=== PATIENT | female | born 1950 | race African-American/Black ===

== ENCOUNTER 2019-09-29 00:15 | Inpatient (IN) | payer OTHER ==
[~2019-09-29] VITALS: Ht 167.6 cm; Wt 90.8 kg
[2019-09-29] VITALS (19 sets, daily range): BP systolic 80–138; BP diastolic 60–86
[~2019-09-29 00:15] MED LIST: ASPI-630 PO; BACL10TA PO; DIAZ2TAB3 PO; FOLI1TAB16 PO; FURO-69 PO; LEVO100T PO; LORA10TA3 PO; MELA5TAB PO; MIRT30TA3 PO; MULT-245 PO; OXYC5CAP PO; POTASSIUM CHLO10 ME1 PO; THIA100T8 PO; TRAM50TA PO
[2019-09-29] MEDS ORDERED: VANCOMYCIN PER PHARMACY MC PRN (00:45)
--- NOTE | 2019-09-29 00:47 | PHYS DOC ---
Past Medical History Past Medical History: Hypertension, Stroke Additional Past Medical Histor: PAD, cervical stenosis Past Surgical History: Cervical Fusion, Other Additional Past Surgical Histo: Arteries Alcohol Use: None Drug Use: Marijuana Adult General Chief Complaint Chief Complaint: SHORTNESS OF BREATH HPI HPI 69-year-old female presents to the emergency department via EMS with complaints of fever. Patient is a resident of [facility], she has underlying history of C OPD, hypertension, history of CVA. She states the fever started this morning they gave her Tylenol yesterday as well however detention states it started tonight. She does complain of nausea as well as shortness of breath. She denies any chest pain. She states her abdomen feels distended. She denies any pain however on examination. Review of Systems Review of Systems Constitutional: fever Respiratory: Shortness of Breath Cardiovascular: No additional information not addressed in HPI [] GI: Abdominal distention, no nausea, vomiting, bloody stools or diarrhea [] : Denies dysuria or hematuria [] Musculoskeletal: Denies back pain or joint pain [] Integument: Denies rash or skin lesions [] Neurologic: Denies headache, Endocrine: Denies polyuria or polydipsia [] All other systems were reviewed and found to be within normal limits, except as documented in this note. Current Medications Current Medications Current Medications Medications (Trade) Dose Ordered Sig/Chaz Start Time Stop Time Status Last Admin Dose Admin Acetaminophen (Tylenol) 650 mg PRN Q4HRS PRN 09/29/19 03:45 09/29/19 08:22 DC Furosemide (Lasix) 40 mg 1X ONCE 09/29/19 01:30 09/29/19 01:31 DC 09/29/19 01:50 20 MG Info (CONTRAST GIVEN -- Rx MONITORING) 1 each PRN DAILY PRN 09/29/19 02:00 10/01/19 01:59 Iohexol (Omnipaque 300 Mg/ml) 75 ml 1X ONCE 09/29/19 02:00 09/29/19 02:01 DC Norepinephrine Bitartrate 250 ml @ 0 mls/hr CONT PRN 09/29/19 02:45 09/29/19 14:27 14 MLS/HR Ondansetron HCl (Zofran) 4 mg PRN Q8HRS PRN 09/29/19 03:45 09/29/19 08:24 DC Piperacillin Sod/ Tazobactam Sod 4.5 gm/Sodium Chloride 100 ml @ 200 mls/hr 1X ONCE 09/29/19 01:00 09/29/19 01:29 DC 09/29/19 01:02 200 MLS/HR Sodium Chloride 1,000 ml @ 1,000 mls/hr Q1H 09/29/19 02:00 09/29/19 03:21 DC 09/29/19 02:22 1,000 MLS/HR Vancomycin HCl (Vanco Per Pharmacy) 1 each PRN DAILY PRN 09/29/19 00:45 09/29/19 06:34 1 EACH Vancomycin HCl 1.75 gm/Sodium Chloride 500 ml @ 250 mls/hr 1X ONCE 09/29/19 02:00 09/29/19 03:59 DC 09/29/19 02:22 250 MLS/HR Allergies Allergies Allergies Coded Allergies Type Severity Reaction Last Updated Verified propylthiouracil Allergy Intermediate Nausea and Vomiting 03/09/16 Yes Physical Exam Physical Exam Constitutional: Well developed, well nourished, mild distress/ill-appearing [] HENT: Normocephalic, atraumatic, bilateral external ears normal, oropharynx moist, no oral exudates, nose normal. [] Eyes: PERRLA, EOMI, conjunctiva normal, no discharge. [] Neck: Normal range of motion, no tenderness, supple, no stridor. [] Cardiovascular: Tachycardia Lungs & Thorax: Bilateral breath sounds clear to auscultation [] Abdomen: distended, decreased BS, no masses[] Skin: Warm, dry, no erythema, no rash. [] Back: No tenderness, no CVA tenderness. [] Extremities: No tenderness, no edema. [] Neurologic: Alert and oriented X 3, no focal deficits noted. [] Psychologic: Affect normal, judgement normal, mood normal. [] Current Patient Data Vital Signs Vital Signs Date Time Temp Pulse Resp B/P (MAP) Pulse Ox O2 Delivery O2 Flow Rate FiO2 09/29/19 03:46 108 26 132/72 (92) 96 Nasal Cannula 4.0 09/29/19 00:20 104.4 104.4 Lab Values Laboratory Tests Test 09/29/19 00:43 09/29/19 02:35 11/24/19 03:27 White Blood Count 17.2 x10^3/uL (4.0-11.0) H Red Blood Count 4.75 x10^6/uL (3.50-5.40) Hemoglobin 13.4 g/dL (12.0-15.5) Hematocrit 41.3 % (36.0-47.0) Mean Corpuscular Volume 87 fL (79-100) Mean Corpuscular Hemoglobin 28 pg (25-35) Mean Corpuscular Hemoglobin Concent 33 g/dL (31-37) Red Cell Distribution Width 14.7 % (11.5-14.5) H Platelet Count 245 x10^3/uL (140-400) Neutrophils (%) (Auto) 86 % (31-73) H Lymphocytes (%) (Auto) 7 % (24-48) L Monocytes (%) (Auto) 7 % (0-9) Eosinophils (%) (Auto) 0 % (0-3) Basophils (%) (Auto) 1 % (0-3) Neutrophils # (Auto) 14.8 x10^3/uL (1.8-7.7) H Lymphocytes # (Auto) 1.1 x10^3/uL (1.0-4.8) Monocytes # (Auto) 1.2 x10^3/uL (0.0-1.1) H Eosinophils # (Auto) 0.0 x10^3/uL (0.0-0.7) Basophils # (Auto) 0.1 x10^3/uL (0.0-0.2) Segmented Neutrophils % 74 % (35-66) H Band Neutrophils % 12 % (0-9) H Lymphocytes % 8 % (24-48) L Monocytes % 6 % (0-10) Toxic Granulation Slight Toxic Vacuolation Slight Platelet Estimate Adequate (ADEQUATE) Sodium Level 138 mmol/L (136-145) Potassium Level 3.8 mmol/L (3.5-5.1) Chloride Level 99 mmol/L (98-107) Carbon Dioxide Level 26 mmol/L (21-32) Anion Gap 13 (6-14) Blood Urea Nitrogen 12 mg/dL (7-20) Creatinine 0.9 mg/dL (0.6-1.0) Estimated GFR (Cockcroft-Gault) 75.1 BUN/Creatinine Ratio 13 (6-20) Glucose Level 226 mg/dL (70-99) H Lactic Acid Level 3.0 mmol/L (0.4-2.0) H Calcium Level 9.6 mg/dL (8.5-10.1) Total Bilirubin 0.6 mg/dL (0.2-1.0) Aspartate Amino Transferase (AST) 35 U/L (15-37) Alanine Aminotransferase (ALT) 31 U/L (14-59) Alkaline Phosphatase 113 U/L (46-116) MI-Pqs-R-Type Natriuretic Peptide 210 pg/mL (0-124) H Total Protein 8.7 g/dL (6.4-8.2) H Albumin 3.4 g/dL (3.4-5.0) Albumin/Globulin Ratio 0.6 (1.0-1.7) L Influenza Type A Antigen Negative (NEGATIVE) Influenza Type B Antigen Positive (NEGATIVE) Urine Collection Type Unknown Urine Color Yellow Urine Clarity Cloudy Urine pH 5.0 Urine Specific [place] 1.010 Urine Protein 30 mg/dL (NEG-TRACE) Urine Glucose (UA) Negative mg/dL (NEG) Urine Ketones (Stick) Negative mg/dL (NEG) Urine Blood Large (NEG) Urine Nitrite Negative (NEG) Urine Bilirubin Negative (NEG) Urine Urobilinogen Dipstick 1.0 mg/dL (0.2 mg/dL) Urine Leukocyte Esterase Small (NEG) Urine RBC 20-40 /HPF (0-2) Urine WBC 5-10 /HPF (0-4) Urine Squamous Epithelial Cells Few /LPF Urine Amorphous Sediment Present /HPF Urine Bacteria Many /HPF (0-FEW) Laboratory Tests 09/29/19 00:43 Laboratory Tests 09/29/19 00:43 EKG EKG [] Radiology/Procedures Radiology/Procedures [facility] [address] [place], [place] [id number] IMAGING REPORT Signed PATIENT: LANCE HALL ACCOUNT: [id number] : 1950 LOCATION: ER AGE: 69 SEX: F EXAM STATUS: REG ER ORD. PHYSICIAN: SARBJIT ROJAS MD REASON: fever PROCEDURE: CHEST AP ONLY INDICATION: Fever COMPARISON: May 29, 2005 FINDINGS: Single view of chest obtained. Partial visualization of plate and screws at proximal right humerus as well as plate and screws at lower cervical spine. Hypoexpanded examination of the lungs. Mild interstitial opacities bilaterally. Cardiac silhouette is mildly prominent with calcific atherosclerosis but this could be exaggerated by portable technique. IMPRESSION: * Mild interstitial opacities bilaterally which could be secondary to hypoventilatory changes although mild edema or interstitial infiltrate can have this appearance. Electronically signed by: Sakshi Rodriguez MD (09/29/2019 12:55 AM) [facility] DICTATED and SIGNED BY: SAKSHI RODRIGUEZ MD DATE: 09/29/19 0055 [] [facility] [address] [place] [address] IMAGING REPORT Signed PATIENT: LANCE HALL ACCOUNT: [id number] : 1950 LOCATION: ER AGE: 69 SEX: F EXAM STATUS: REG ER ORD. PHYSICIAN: SARBJIT ROJAS MD REASON: abd distention, wbc 17k, hx of graves disease PROCEDURE: CT ABDOMEN PELVIS WO CONTRAST INDICATION: Abdomen pain COMPARISON: None. TECHNIQUE: Axial CT images obtained through the without intravenous contrast.. One or more of the following individualized dose reduction techniques were utilized for this examination: 1. Automated exposure control; 2. Adjustment of the mA and/or kV according to patient size; 3. Use of iterative reconstruction technique. FINDINGS: Patchy opacities at lung bases. Calcified structure at the mediastinum could be from causes such as a calcified lymph node. Calcific atherosclerosis. Large calcified structure left side of the uterus measuring up to 4 cm which is commonly from fibroid. Postoperative changes at the left groin which could be status post vascular surgery. No intrahepatic bile duct dilation. No peripancreatic fluid collection. Motion limits evaluation. Spleen unremarkable. Left kidney is displaced inferiorly. Urinary bladder is partially distended. No right-sided hydronephrosis. Severe dilatation of the rectosigmoid region with a large amount of stool and haziness to the adjacent fat. The distal sigmoid measures up to 11.5 cm Degenerative changes the spine with multilevel central canal and neural foraminal stenosis. There is some edema to the soft tissues. Osseous demineralization. IMPRESSION: * Severe dilatation of the distal sigmoid and rectal region with a large amount of stool within the area. Can be seen with fecal impaction. There is some adjacent indistinctness to the fat which could be secondary to associated inflammatory changes. * Calcifications within the uterus which can be seen with uterine fibroids. * Patchy opacities at lung bases which could be from atelectasis or infiltrate. Electronically signed by: Sakshi Rodriguez MD (09/29/2019 2:40 AM) [facility] DICTATED and SIGNED BY: SAKSHI RODRIGUEZ MD DATE: 09/29/19 0240 Course & Med Decision Making Course & Med Decision Making Pertinent Labs and Imaging studies reviewed. (See chart for details) [] 69-year-old female presents to the emergency department via EMS with complaints of fever. Patient is a resident of [facility], she has underlying history of COPD, hypertension, history of CVA. She states the fever started this morning they gave her Tylenol yesterday as well however detention states it started tonight. She does complain of nausea as well as shortness of breath. She denies any chest pain. She states her abdomen feels distended. She denies any pain however on examination. IVF, cultures, abx initiated with sepsis protocol Labs reviewed - WBC 17k, Lactic acid 3.0 Patient with abdominal distention however no acute pain Patient initially hemodynamically stable however became hypotensive CT with evidence of fecal impaction however given patients hypotension would defer rectal stimulation at this time - enema ordered Discussed admit with patient and family Given hypotension will need central line placement - see note Dragon Disclaimer Dragon Disclaimer This electronic medical record was generated, in whole or in part, using a voice recognition dictation system. Departure Departure Impression: Primary Impression: Sepsis Additional Impressions: Influenza B Fecal impaction Disposition: ADMITTED INPATIENT Admitting Physician: JESUS Condition: STABLE Referrals: WILL JOE MD (PCP) Critical Care Time Critical care time was 40 minutes exclusive of procedures. 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 PICC Care Tech?: No Line exchanged over guidewire?: No Central Line Indications: Monitor CVP Hand Hygiene Performed?: Yes Maximal sterile barriers used: Mask, Sterile gown, Sterile gloves, Large sterile drape, Cap Skin Preperation: (Check All): Chlorhexidine gluconate Prep dry @ skin punture?: Yes Patient is less than 2 months: No Known allergy to CHG?: No Safety concern in premature in: No Insertion Site: Jugular Antimicrobial catheter used?: No Central Line catheter type: Non-tunneled Successful Placement?: Yes Date and Time of Reassessment Date: Sep 28, 2019 Time: 23:00 Fluid Challenge Is the fluid challenge complet: Yes IBW Target Volume Used: No BMI > 30: Yes Vital Signs Vital Signs: Vital Signs Date Time Temp Pulse Resp B/P (MAP) Pulse Ox O2 Delivery O2 Flow Rate FiO2 09/29/19 03:46 108 26 132/72 (92) 96 Nasal Cannula 4.0 09/29/19 00:20 104.4 104.4 Temperature Source: Oral Respirations Respiratory Effort: Shortness of breath Respiratory Pattern: Tachypnea Cardiovascular Pulse Rhythm: Irregular Heart: No rubs, clicks or gallop Lung Sounds Breath Sounds: Diminished Capillary Refil Capillary Refill: Rt Foot < 3 seconds Peripheral Pulse Pulse Location: Dorsalis Pedis Pulse Strength: Weak (1+) Pulse Assessment Method: Monitor Integumentary Skin: Warm Skin Moisture: Dry Skin Color: warm Fingernail Color: WNL Problem Qualifiers Primary Impression: Sepsis Sepsis type: sepsis due to unspecified organism Sepsis acute organ dysfunction status: unspecified Qualified Codes: A41.9 - Sepsis, unspecified organism SARBJIT ROJAS MD Sep 29, 2019 00:47
[2019-09-29 00:56] LABS: BASO # 0.1 x10^3/uL (0.0-0.2); BASO % 1 % (0-3); EOS % 0 % (0-3); HEMATOCRIT 41.3 % (36.0-47.0); HEMOGLOBIN 13.4 g/dL (12.0-15.5); LYMPH # 1.1 x10^3/uL (1.0-4.8); LYMPH % 7 % (24-48); MEAN CORPUSCULAR HEMOGLOBIN 28 pg (25-35); MEAN CORPUSCULAR HGB CONC 33 g/dL (31-37); MEAN CORPUSCULAR VOLUME 87 fL (79-100); MONO # 1.2 x10^3/uL (0.0-1.1); MONO % 7 % (0-9); NEUT # 14.8 x10^3/uL (1.8-7.7); NEUT % 86 % (31-73); PLATELET COUNT 245 x10^3/uL (140-400); RED BLOOD COUNT 4.75 x10^6/uL (3.50-5.40); RED CELL DISTRIBUTION WIDTH 14.7 % (11.5-14.5); WHITE BLOOD COUNT 17.2 x10^3/uL (4.0-11.0)
--- NOTE | 2019-09-29 00:58 | RAD ---
INDICATION: Fever COMPARISON: May 29, 2005 FINDINGS: Single view of chest obtained. Partial visualization of plate and screws at proximal right humerus as well as plate and screws at lower cervical spine. Hypoexpanded examination of the lungs. Mild interstitial opacities bilaterally. Cardiac silhouette is mildly prominent with calcific atherosclerosis but this could be exaggerated by portable technique. IMPRESSION: * Mild interstitial opacities bilaterally which could be secondary to hypoventilatory changes although mild edema or interstitial infiltrate can have this appearance. Electronically signed by: Graham Jain MD (09/29/2019 12:55 AM) [facility]
[2019-09-29] MEDS ORDERED: PIPERACILLIN/TAZOBACTAM 4.5 GM in IV NORMAL SALINE 100ML 100 ML IV ONE (01:00)
[2019-09-29] MEDS ORDERED: ACETAMINOPHEN 500 MG TABLET PO ONE (01:00)
[2019-09-29] MEDS ORDERED: IV NORMAL SALINE 1000ML BAG 1,000 ML IV ONE (01:00)
[2019-09-29 01:06] LABS: CALCIUM 9.6 mg/dL (8.5-10.1); CREATININE 0.9 mg/dL (0.6-1.0); GFR 75.1; POTASSIUM 3.8 mmol/L (3.5-5.1)
[2019-09-29 01:12] LABS: ALBUMIN 3.4 g/dL (3.4-5.0); ALBUMIN/GLOBULIN RATIO 0.6 (1.0-1.7); TOTAL BILIRUBIN 0.6 mg/dL (0.2-1.0); TOTAL PROTEIN 8.7 g/dL (6.4-8.2)
[2019-09-29] MEDS ORDERED: FUROSEMIDE 40 MG/4 ML VIAL. IVP ONE (01:30)
[2019-09-29 01:33] LABS: % BANDS 12 % (0-9); % LYMPHS 8 % (24-48); % MONOS 6 % (0-10); % SEGS 74 % (35-66); PLT ESTIMATE ADEQUATE (ADEQUATE); TOXIC GRANULATION SLIGHT; TOXIC VACUOLATION SLIGHT
[2019-09-29] MEDS ORDERED: CONTRAST GIVEN. MC PRN (02:00)
[2019-09-29] MEDS ORDERED: VANCOMYCIN 1.75 GM in IV NORMAL SALINE 500ML BAG 500 ML IV ONE (02:00)
[2019-09-29] MEDS ORDERED: IOHEXOL 300 MG/ML 100ML VIAL. IV ONE (02:00)
[2019-09-29] MEDS: IV NORMAL SALINE 1000ML BAG 1,000 ML IV SCH ×3 (02:22→19:00)
--- NOTE | 2019-09-29 02:43 | RAD ---
INDICATION: Abdomen pain COMPARISON: None. TECHNIQUE: Axial CT images obtained through the without intravenous contrast.. One or more of the following individualized dose reduction techniques were utilized for this examination: 1. Automated exposure control; 2. Adjustment of the mA and/or kV according to patient size; 3. Use of iterative reconstruction technique. FINDINGS: Patchy opacities at lung bases. Calcified structure at the mediastinum could be from causes such as a calcified lymph node. Calcific atherosclerosis. Large calcified structure left side of the uterus measuring up to 4 cm which is commonly from fibroid. Postoperative changes at the left groin which could be status post vascular surgery. No intrahepatic bile duct dilation. No peripancreatic fluid collection. Motion limits evaluation. Spleen unremarkable. Left kidney is displaced inferiorly. Urinary bladder is partially distended. No right-sided hydronephrosis. Severe dilatation of the rectosigmoid region with a large amount of stool and haziness to the adjacent fat. The distal sigmoid measures up to 11.5 cm Degenerative changes the spine with multilevel central canal and neural foraminal stenosis. There is some edema to the soft tissues. Osseous demineralization. IMPRESSION: * Severe dilatation of the distal sigmoid and rectal region with a large amount of stool within the area. Can be seen with fecal impaction. There is some adjacent indistinctness to the fat which could be secondary to associated inflammatory changes. * Calcifications within the uterus which can be seen with uterine fibroids. * Patchy opacities at lung bases which could be from atelectasis or infiltrate. Electronically signed by: Graham Jain MD (09/29/2019 2:40 AM) [facility]
[2019-09-29] MEDS: NOREPINEPHRIN 8MG/250ML PREMIX 250 ML IV PRN ×2 (02:47→14:27)
[2019-09-29 03:03] LABS: INFLUENZA A PATIENT NEGATIVE (NEGATIVE)
[2019-09-29 03:04] LABS: INFLUENZA B PATIENT POSITIVE (NEGATIVE)
[2019-09-29 03:38] LABS: BILIRUBIN,URINE NEGATIVE (NEG); CLARITY,URINE CLOUDY; COLOR,URINE YELLOW; NITRITE,URINE NEGATIVE (NEG); PROTEIN,URINE 30 mg/dL (NEG-TRACE)
[2019-09-29] MEDS ORDERED: ONDANSETRON PF 4 MG/2 ML VIAL. IV PRN (03:45)
[2019-09-29] MEDS ORDERED: ACETAMINOPHEN 325 MG TABLET. PO PRN (03:45)
[2019-09-29 03:55] LABS: SQUAMOUS EPITHELIAL CELL,UR FEW /LPF
[2019-09-29 03:56] LABS: BACTERIA,URINE MANY /HPF (0-FEW); RBC,URINE 20-40 /HPF (0-2)
[2019-09-29 03:57] LABS: AMORPHOUS SEDIMENT,UR PRESENT /HPF
--- NOTE | 2019-09-29 06:34 | NUR ---
Pharmacy Vancomycin Dosing Note S:Consulted to monitor and dose vancomycin started 09/29/19. O:LANCE HALL is a 69 year old F with Sepsis . Height: 5 feet, 0 inches Weight: 74.118781 kg [place] Body Weight: 45.50 Adjusted Body Weight: 56.90 Dosing Weight: Actual Other Antibiotics: ZOSYN X1 ED LABS: Last BUN: 12 Last Creatinine: 0.9 Creatinine Clearance: 48 mL/min Last WBC: 17.2 Last Procalcitonin: Tmax (past 24 hours): Microbiology: I/O: Drug Levels: Last level: on at Last dose given 09/29/19 at 0200 Vancomycin Dosing: Loading Dose: 1750 mg x1 Dosing Weight: Actual Target Trough: 15-20 A: Based on: WT AND CRCL P: 1. Begin Vancomycin 1000 mg IV q18h 2. Follow up Trough level on 09/30/19 at 1330 3. Pharmacy will continue to monitor, follow and adjust therapy as needed. TERE HANLEY RPH, 09/29/19 0635 Signed: 09/29/19 at 0635 by TERE HANLEY RPH PHA
--- NOTE | 2019-09-29 06:37 | RAD ---
INDICATION: Central line placement COMPARISON: Earlier same day FINDINGS: Single view of chest obtained. Left-sided vascular catheter with tip at the expected location of the distal SVC. Enlarged cardiac silhouette again seen. Repeat demonstration of interstitial opacities bilaterally IMPRESSION: * Interval placement of left-sided vascular catheter with tip projecting over the expected location of the SVC. * Appearance the lungs similar to prior. Electronically signed by: Graham Jain MD (09/29/2019 6:34 AM) [facility]
[2019-09-29] MEDS ORDERED: ONDANSETRON PF 4 MG/2 ML VIAL. IVP PRN (08:15)
[2019-09-29] MEDS ORDERED: POLYETHYLENE GLYCOL 3350 17 GM PACKET. PO PRN (08:15)
[2019-09-29] MEDS ORDERED: TEMAZEPAM 7.5 MG CAPSULE PO PRN (08:15)
[2019-09-29] MEDS ORDERED: SODIUM PHOSPHATES 19/7GM 133 ML ENEMA. PR PRN (08:15)
[2019-09-29] MEDS ORDERED: ACETAMINOPHEN 500 MG TABLET PO PRN (08:15)
[2019-09-29] MEDS ORDERED: POLYETHYLENE GLYCOL 3350 17 GM PACKET. PO ONE (08:30)
[2019-09-29] MEDS ORDERED: SODIUM PHOSPHATES 19/7GM 133 ML ENEMA. PR ONE (08:30)
[2019-09-29] MEDS: oxyCODONE IR 5 MG TABLET PO SCH ×3 (09:00→13:32)
[2019-09-29] MEDS: diazePAM 2 MG TABLET PO SCH ×3 (09:00→20:59)
[2019-09-29] MEDS: MULTIVITAMIN with MINERAL TABLET. PO SCH (09:00)
[2019-09-29] MEDS: LEVOTHYROXINE 100 MCG TABLET PO SCH (09:00)
[2019-09-29] MEDS: OSELTAMIVIR 75 MG CAPSULE PO SCH ×2 (09:42→21:00)
[2019-09-29] MEDS: THIAMINE 100 MG TABLET. PO SCH (09:43)
[2019-09-29] MEDS: ASPIRIN CHEWABLE 81 MG TABLET. PO SCH (09:44)
[2019-09-29] MEDS: FOLIC ACID 1 MG TABLET. PO SCH (09:44)
[2019-09-29] MEDS: DOCUSATE SODIUM 100 MG CAPSULE. PO SCH (09:44)
[2019-09-29] MEDS: CETIRIZINE HCL 10 MG TABLET. PO SCH (09:45)
[2019-09-29] MEDS: IPRATRPIUM/ALBUTEROL 0.5/2.5MG 3 ML NEBU. NEB SCH ×4 (09:45→19:30)
[2019-09-29] MEDS: POTASSIUM CHLORIDE 10 MEQ TABLET.ER. PO SCH (09:46)
[2019-09-29] MEDS: traMADol 50 MG TABLET PO SCH ×2 (09:46→20:59)
[2019-09-29] MEDS: glyBURIDE 5 MG TABLET PO SCH ×2 (09:46→16:51)
[2019-09-29] MEDS: CYCLOBENZAPRINE 10 MG TABLET. PO SCH ×3 (09:46→20:59)
--- NOTE | 2019-09-29 09:47 | PDOC1 ---
History and Physical Date of Admission Date of Admission DATE: 09/29/19 TIME: 09:42 Identification/Chief Complaint Chief Complaint SOA, cough, maybe low sats at SNU Source Source: Caregiver, Chart review, Patient History of Present Illness History of Present Illness 69 AA female, long time [facility] resident,wheel chair bound bec of CVA with rt residual hemiparesis, soa, maybe low sats and dry cough at SNU, Fulfilled sepsis criteria with lactate 3 plus, leukocytosis, tachycardia, Positive flu B, Some haziness CXR, GEtting vanc , She eats ok , i see her in ICU on levophed 56 mcgs (HIGH DOSE) I added ID consult., NS 100cc and tamiflu. FUll code NO bed wounds/decub Past Medical History Cardiovascular: HTN Pulmonary: Bronchitis CENTRAL NERVOUS SYSTEM: CVA Past Surgical History Past Surgical History: No pertinent history Family History Family History: No Significant Social History Smoke: No ALCOHOL: none Drugs: None Current Problem List Problem List Problems Medical Problems: (1) Influenza B Status: Acute (2) Sepsis Status: Acute Current Medications Current Medications Current Medications Acetaminophen (Tylenol) 1,000 mg 1X ONCE PO Last administered on 09/29/19at 01:01; Start 09/29/19 at 01:00; Stop 09/29/19 at 01:01; Status DC Piperacillin Sod/ Tazobactam Sod 4.5 gm/Sodium Chloride 100 ml @ 200 mls/hr 1X ONCE IV Last administered on 09/29/19at 01:02; Start 09/29/19 at 01:00; Stop 09/29/19 at 01:29; Status DC Vancomycin HCl (Vanco Per Pharmacy) 1 each PRN DAILY PRN MC SEE COMMENTS Last administered on 09/29/19at 06:34; Start 09/29/19 at 00:45 Sodium Chloride 1,000 ml @ 1,000 mls/hr 1X ONCE IV Last administered on 09/29/19at 01:01; Start 09/29/19 at 01:00; Stop 09/29/19 at 01:59; Status DC Furosemide (Lasix) 40 mg 1X ONCE IVP Last administered on 09/29/19at 01:50; Start 09/29/19 at 01:30; Stop 09/29/19 at 01:31; Status DC Vancomycin HCl 1.75 gm/Sodium Chloride 500 ml @ 250 mls/hr 1X ONCE IV Last administered on 09/29/19at 02:22; Start 09/29/19 at 02:00; Stop 09/29/19 at 03:59; Status DC Iohexol (Omnipaque 300 Mg/ml) 75 ml 1X ONCE IV ; Start 09/29/19 at 02:00; Stop 09/29/19 at 02:01; Status DC Sodium Chloride 1,000 ml @ 1,000 mls/hr Q1H IV Last administered on 09/29/19at 02:22; Start 09/29/19 at 02:00; Stop 09/29/19 at 03:21; Status DC Info (CONTRAST GIVEN -- Rx MONITORING) 1 each PRN DAILY PRN MC SEE COMMENTS; Start 09/29/19 at 02:00; Stop 10/01/19 at 01:59 Norepinephrine Bitartrate 250 ml @ 0 mls/hr CONT PRN IV SEE I/O RECORD Last administered on 09/29/19at 02:47; Start 09/29/19 at 02:45 Ondansetron HCl (Zofran) 4 mg PRN Q8HRS PRN IV NAUSEA/VOMITING 1ST CHOICE; Start 09/29/19 at 03:45; Stop 09/29/19 at 08:24; Status DC Acetaminophen (Tylenol) 650 mg PRN Q4HRS PRN PO FEVER; Start 09/29/19 at 03:45; Stop 09/29/19 at 08:22; Status DC Albuterol/ Ipratropium (Duoneb) 3 ml RTQID NEB ; Start 09/29/19 at 08:00; Stop 09/30/19 at 07:59 Vancomycin HCl 1 gm/Sodium Chloride 250 ml @ 250 mls/hr Q18H IV ; Start 09/29/19 at 20:00 Vancomycin HCl (Vancomycin Trough Level) 1 each 1X ONCE MC ; Start 09/30/19 at 13:30; Stop 09/30/19 at 13:31 Aspirin (Children'S Aspirin) 81 mg DAILY PO ; Start 09/29/19 at 09:00 Diazepam (Valium) 2 mg BID PO ; Start 09/29/19 at 09:00 Folic Acid (Folic Acid) 1 mg DAILY PO ; Start 09/29/19 at 09:00 Levothyroxine Sodium (Synthroid) 100 mcg DAILY06 PO ; Start 09/29/19 at 09:00 Potassium Chloride (Klor-Con) 10 meq DAILY PO ; Start 09/29/19 at 09:00 Tramadol HCl (Ultram) 50 mg BID PO ; Start 09/29/19 at 09:00 Cyclobenzaprine HCl (Flexeril) 10 mg TID PO ; Start 09/29/19 at 09:00 Cetirizine HCl (ZyrTEC) 10 mg DAILY PO ; Start 09/29/19 at 09:00 Mirtazapine (Remeron) 30 mg QHS PO ; Start 09/29/19 at 21:00 Oxycodone HCl (Roxicodone) 5 mg QID PO ; Start 09/29/19 at 09:00 Thiamine Mononitrate (Vitamin B-1) 100 mg DAILY PO ; Start 09/29/19 at 09:00 Temazepam (Restoril) 7.5 mg PRN QHS PRN PO INSOMNIA; Start 09/29/19 at 08:15 Multivitamins (Thera M Plus) 1 tab DAILY PO ; Start 09/29/19 at 09:00 Sodium Monofluorophosphate (Fleet Adult) 133 ml 1X ONCE GA ; Start 09/29/19 at 08:30; Stop 09/29/19 at 08:33; Status DC Sodium Monofluorophosphate (Fleet Adult) 133 ml DAILY PRN GA CONSTIPATION; Start 09/29/19 at 08:15 Polyethylene Glycol (miraLAX PACKET) 17 gm 1X ONCE PO ; Start 09/29/19 at 08:30; Stop 09/29/19 at 08:33; Status DC Polyethylene Glycol (miraLAX PACKET) 17 gm PRN DAILY PRN PO CONSTIPATION; Start 09/29/19 at 08:15 Docusate Sodium (Colace) 100 mg DAILY PO ; Start 09/29/19 at 09:00 Ondansetron HCl (Zofran) 4 mg PRN Q6HRS PRN IVP NAUSEA/VOMITING; Start 09/29/19 at 08:15 Acetaminophen (Tylenol) 500 mg PRN Q6HRS PRN PO MILD PAIN / TEMP; Start 09/29/19 at 08:15 Sodium Chloride 1,000 ml @ 100 mls/hr Q10H IV ; Start 09/29/19 at 09:00 Oseltamivir Phosphate (Tamiflu) 75 mg BID PO ; Start 09/29/19 at 09:00; Stop 10/04/19 at 08:59 Metformin HCl (Glucophage) 500 mg BIDWMEALS PO ; Start 10/01/19 at 08:00 Glyburide (Diabeta) 5 mg BIDWMEALS PO ; Start 09/29/19 at 09:30 Active Scripts Active Reported Diazepam 2 Mg Tablet 2 Mg PO BID Thiamine Hcl 100 Mg Tablet 100 Mg PO DAILY Folic Acid 1 Mg Tablet 1 Tab PO DAILY Oxycodone Hcl 5 Mg Capsule 1 Cap PO QID Potassium Chloride 10 Meq Tablet.er 10 Meq PO DAILY Lasix (Furosemide) 20 Mg Tablet 1 Tab PO DAILY Tramadol Hcl 50 Mg Tablet 1 Tab PO BID Synthroid (Levothyroxine Sodium) 100 Mcg Tablet 1 Tab PO DAILY Melatonin 5 Mg Tablet 5 Mg PO Baclofen 10 Mg Tablet 1 Tab PO TID Multi Vitamin Daily (Multivitamin) 1 Each Tablet 1 Each PO Aspirin 81 Mg Tab.chew 1 Tab PO DAILY Loratadine 10 Mg Tablet 1 Tab PO DAILY Mirtazapine 30 Mg Tablet 1 Tab PO QHS Allergies Allergies: Coded Allergies: propylthiouracil (Verified Allergy, Intermediate, Nausea and Vomiting, 03/09/16) ROS Review of System weak, cough, tired, soa on exertion , myalgia, headache, arthralgia, neg 14 pt Physical Exam General: Alert, Oriented X3, Cooperative, No acute distress HEENT: Atraumatic, PERRLA, EOMI, Other (dec BS poor effort, diminshed at bases) Breasts: Normal, Rt breast nml w/o mass, Lt breast nml w/o mass, Nipples normal Abdomen: Normal bowel sounds, Soft, No tenderness, No hepatosplenomegaly, No masses Rectal Exam: not examined PELVIC: Nml ext genitalia Extremities: No clubbing, No cyanosis, Other (left sided hemiplegia) Skin: No rashes, No breakdown, No significant lesion Neuro: Normal tone, Reflexes 2+, Other (wheelxchair bound) Vitals Vitals Vital Signs Date Time Temp Pulse Resp B/P (MAP) Pulse Ox O2 Delivery O2 Flow Rate FiO2 09/29/19 08:00 98.1 98 22 116/81 (93) 100 Nasal Cannula 4.0 98.1 Labs Labs Laboratory Tests Test 09/29/19 00:43 09/29/19 02:35 09/29/19 03:27 09/29/19 04:50 White Blood Count 17.2 x10^3/uL (4.0-11.0) Red Blood Count 4.75 x10^6/uL (3.50-5.40) Hemoglobin 13.4 g/dL (12.0-15.5) Hematocrit 41.3 % (36.0-47.0) Mean Corpuscular Volume 87 fL (79-100) Mean Corpuscular Hemoglobin 28 pg (25-35) Mean Corpuscular Hemoglobin Concent 33 g/dL (31-37) Red Cell Distribution Width 14.7 % (11.5-14.5) Platelet Count 245 x10^3/uL (140-400) Neutrophils (%) (Auto) 86 % (31-73) Lymphocytes (%) (Auto) 7 % (24-48) Monocytes (%) (Auto) 7 % (0-9) Eosinophils (%) (Auto) 0 % (0-3) Basophils (%) (Auto) 1 % (0-3) Neutrophils # (Auto) 14.8 x10^3/uL (1.8-7.7) Lymphocytes # (Auto) 1.1 x10^3/uL (1.0-4.8) Monocytes # (Auto) 1.2 x10^3/uL (0.0-1.1) Eosinophils # (Auto) 0.0 x10^3/uL (0.0-0.7) Basophils # (Auto) 0.1 x10^3/uL (0.0-0.2) Segmented Neutrophils % 74 % (35-66) Band Neutrophils % 12 % (0-9) Lymphocytes % 8 % (24-48) Monocytes % 6 % (0-10) Toxic Granulation Slight Toxic Vacuolation Slight Platelet Estimate Adequate (ADEQUATE) Sodium Level 138 mmol/L (136-145) Potassium Level 3.8 mmol/L (3.5-5.1) Chloride Level 99 mmol/L (98-107) Carbon Dioxide Level 26 mmol/L (21-32) Anion Gap 13 (6-14) Blood Urea Nitrogen 12 mg/dL (7-20) Creatinine 0.9 mg/dL (0.6-1.0) Estimated GFR (Cockcroft-Gault) 75.1 BUN/Creatinine Ratio 13 (6-20) Glucose Level 226 mg/dL (70-99) Lactic Acid Level 3.0 mmol/L (0.4-2.0) 3.6 mmol/L (0.4-2.0) Calcium Level 9.6 mg/dL (8.5-10.1) Total Bilirubin 0.6 mg/dL (0.2-1.0) Aspartate Amino Transf (AST/SGOT) 35 U/L (15-37) Alanine Aminotransferase (ALT/SGPT) 31 U/L (14-59) Alkaline Phosphatase 113 U/L (46-116) TN-Ufw-U-Type Natriuretic Peptide 210 pg/mL (0-124) Total Protein 8.7 g/dL (6.4-8.2) Albumin 3.4 g/dL (3.4-5.0) Albumin/Globulin Ratio 0.6 (1.0-1.7) Influenza Type A Antigen Negative (NEGATIVE) Influenza Type B Antigen Positive (NEGATIVE) Urine Collection Type Unknown Urine Color Yellow Urine Clarity Cloudy Urine pH 5.0 Urine Specific [place] 1.010 Urine Protein 30 mg/dL (NEG-TRACE) Urine Glucose (UA) Negative mg/dL (NEG) Urine Ketones (Stick) Negative mg/dL (NEG) Urine Blood Large (NEG) Urine Nitrite Negative (NEG) Urine Bilirubin Negative (NEG) Urine Urobilinogen Dipstick 1.0 mg/dL (0.2 mg/dL) Urine Leukocyte Esterase Small (NEG) Urine RBC 20-40 /HPF (0-2) Urine WBC 5-10 /HPF (0-4) Urine Squamous Epithelial Cells Few /LPF Urine Amorphous Sediment Present /HPF Urine Bacteria Many /HPF (0-FEW) Test 09/29/19 08:35 09/29/19 09:04 Lactic Acid Level 2.5 mmol/L (0.4-2.0) Glucose (Fingerstick) 255 mg/dL (70-99) Laboratory Tests Test 09/29/19 00:43 09/29/19 02:35 09/29/19 03:27 09/29/19 04:50 White Blood Count 17.2 x10^3/uL (4.0-11.0) Red Blood Count 4.75 x10^6/uL (3.50-5.40) Hemoglobin 13.4 g/dL (12.0-15.5) Hematocrit 41.3 % (36.0-47.0) Mean Corpuscular Volume 87 fL (79-100) Mean Corpuscular Hemoglobin 28 pg (25-35) Mean Corpuscular Hemoglobin Concent 33 g/dL (31-37) Red Cell Distribution Width 14.7 % (11.5-14.5) Platelet Count 245 x10^3/uL (140-400) Neutrophils (%) (Auto) 86 % (31-73) Lymphocytes (%) (Auto) 7 % (24-48) Monocytes (%) (Auto) 7 % (0-9) Eosinophils (%) (Auto) 0 % (0-3) Basophils (%) (Auto) 1 % (0-3) Neutrophils # (Auto) 14.8 x10^3/uL (1.8-7.7) Lymphocytes # (Auto) 1.1 x10^3/uL (1.0-4.8) Monocytes # (Auto) 1.2 x10^3/uL (0.0-1.1) Eosinophils # (Auto) 0.0 x10^3/uL (0.0-0.7) Basophils # (Auto) 0.1 x10^3/uL (0.0-0.2) Segmented Neutrophils % 74 % (35-66) Band Neutrophils % 12 % (0-9) Lymphocytes % 8 % (24-48) Monocytes % 6 % (0-10) Toxic Granulation Slight Toxic Vacuolation Slight Platelet Estimate Adequate (ADEQUATE) Sodium Level 138 mmol/L (136-145) Potassium Level 3.8 mmol/L (3.5-5.1) Chloride Level 99 mmol/L (98-107) Carbon Dioxide Level 26 mmol/L (21-32) Anion Gap 13 (6-14) Blood Urea Nitrogen 12 mg/dL (7-20) Creatinine 0.9 mg/dL (0.6-1.0) Estimated GFR (Cockcroft-Gault) 75.1 BUN/Creatinine Ratio 13 (6-20) Glucose Level 226 mg/dL (70-99) Lactic Acid Level 3.0 mmol/L (0.4-2.0) 3.6 mmol/L (0.4-2.0) Calcium Level 9.6 mg/dL (8.5-10.1) Total Bilirubin 0.6 mg/dL (0.2-1.0) Aspartate Amino Transf (AST/SGOT) 35 U/L (15-37) Alanine Aminotransferase (ALT/SGPT) 31 U/L (14-59) Alkaline Phosphatase 113 U/L (46-116) QM-Lsr-V-Type Natriuretic Peptide 210 pg/mL (0-124) Total Protein 8.7 g/dL (6.4-8.2) Albumin 3.4 g/dL (3.4-5.0) Albumin/Globulin Ratio 0.6 (1.0-1.7) Influenza Type A Antigen Negative (NEGATIVE) Influenza Type B Antigen Positive (NEGATIVE) Urine Collection Type Unknown Urine Color Yellow Urine Clarity Cloudy Urine pH 5.0 Urine Specific [place] 1.010 Urine Protein 30 mg/dL (NEG-TRACE) Urine Glucose (UA) Negative mg/dL (NEG) Urine Ketones (Stick) Negative mg/dL (NEG) Urine Blood Large (NEG) Urine Nitrite Negative (NEG) Urine Bilirubin Negative (NEG) Urine Urobilinogen Dipstick 1.0 mg/dL (0.2 mg/dL) Urine Leukocyte Esterase Small (NEG) Urine RBC 20-40 /HPF (0-2) Urine WBC 5-10 /HPF (0-4) Urine Squamous Epithelial Cells Few /LPF Urine Amorphous Sediment Present /HPF Urine Bacteria Many /HPF (0-FEW) Test 09/29/19 08:35 09/29/19 09:04 Lactic Acid Level 2.5 mmol/L (0.4-2.0) Glucose (Fingerstick) 255 mg/dL (70-99) VTE Prophylaxis Ordered VTE Prophylaxis Devices: Yes VTE Pharmacological Prophylaxi: Yes Assessment/Plan Assessment/Plan septic shock - levophed 56 mcgs FLu B positive Hx hTN now HYPOTENSIVE CVA with left sided residual Functional quadriplegia - wheelchair bound at [facility] SNU resident - long time AOCD MOD PCM Lio VMN Acute hypoxic RF with abN CXR -empiric abx PLAn: ICU bed, pressor NS 100cc hr BC, tamiflu ID consult PT OTOk toe at Other supprotive meds [facility]ck to [facility] on dc FULL CODE CAREN AN MD Sep 29, 2019 09:47
--- NOTE | 2019-09-29 12:56 | PDOC ---
Infectious Disease Note Vital Sign Vital Signs Vital Signs Date Time Temp Pulse Resp B/P (MAP) Pulse Ox O2 Delivery O2 Flow Rate FiO2 09/29/19 12:00 Nasal Cannula 4.0 09/29/19 12:00 99.4 108 20 111/74 (86) 100 99.4 Labs Lab Laboratory Tests Test 09/29/19 00:43 09/29/19 02:35 09/29/19 03:27 09/29/19 04:50 White Blood Count 17.2 x10^3/uL (4.0-11.0) Red Blood Count 4.75 x10^6/uL (3.50-5.40) Hemoglobin 13.4 g/dL (12.0-15.5) Hematocrit 41.3 % (36.0-47.0) Mean Corpuscular Volume 87 fL (79-100) Mean Corpuscular Hemoglobin 28 pg (25-35) Mean Corpuscular Hemoglobin Concent 33 g/dL (31-37) Red Cell Distribution Width 14.7 % (11.5-14.5) Platelet Count 245 x10^3/uL (140-400) Neutrophils (%) (Auto) 86 % (31-73) Lymphocytes (%) (Auto) 7 % (24-48) Monocytes (%) (Auto) 7 % (0-9) Eosinophils (%) (Auto) 0 % (0-3) Basophils (%) (Auto) 1 % (0-3) Neutrophils # (Auto) 14.8 x10^3/uL (1.8-7.7) Lymphocytes # (Auto) 1.1 x10^3/uL (1.0-4.8) Monocytes # (Auto) 1.2 x10^3/uL (0.0-1.1) Eosinophils # (Auto) 0.0 x10^3/uL (0.0-0.7) Basophils # (Auto) 0.1 x10^3/uL (0.0-0.2) Segmented Neutrophils % 74 % (35-66) Band Neutrophils % 12 % (0-9) Lymphocytes % 8 % (24-48) Monocytes % 6 % (0-10) Toxic Granulation Slight Toxic Vacuolation Slight Platelet Estimate Adequate (ADEQUATE) Sodium Level 138 mmol/L (136-145) Potassium Level 3.8 mmol/L (3.5-5.1) Chloride Level 99 mmol/L (98-107) Carbon Dioxide Level 26 mmol/L (21-32) Anion Gap 13 (6-14) Blood Urea Nitrogen 12 mg/dL (7-20) Creatinine 0.9 mg/dL (0.6-1.0) Estimated GFR (Cockcroft-Gault) 75.1 BUN/Creatinine Ratio 13 (6-20) Glucose Level 226 mg/dL (70-99) Lactic Acid Level 3.0 mmol/L (0.4-2.0) 3.6 mmol/L (0.4-2.0) Calcium Level 9.6 mg/dL (8.5-10.1) Total Bilirubin 0.6 mg/dL (0.2-1.0) Aspartate Amino Transf (AST/SGOT) 35 U/L (15-37) Alanine Aminotransferase (ALT/SGPT) 31 U/L (14-59) Alkaline Phosphatase 113 U/L (46-116) TL-Fxd-K-Type Natriuretic Peptide 210 pg/mL (0-124) Total Protein 8.7 g/dL (6.4-8.2) Albumin 3.4 g/dL (3.4-5.0) Albumin/Globulin Ratio 0.6 (1.0-1.7) Influenza Type A Antigen Negative (NEGATIVE) Influenza Type B Antigen Positive (NEGATIVE) Urine Collection Type Unknown Urine Color Yellow Urine Clarity Cloudy Urine pH 5.0 Urine Specific [place] 1.010 Urine Protein 30 mg/dL (NEG-TRACE) Urine Glucose (UA) Negative mg/dL (NEG) Urine Ketones (Stick) Negative mg/dL (NEG) Urine Blood Large (NEG) Urine Nitrite Negative (NEG) Urine Bilirubin Negative (NEG) Urine Urobilinogen Dipstick 1.0 mg/dL (0.2 mg/dL) Urine Leukocyte Esterase Small (NEG) Urine RBC 20-40 /HPF (0-2) Urine WBC 5-10 /HPF (0-4) Urine Squamous Epithelial Cells Few /LPF Urine Amorphous Sediment Present /HPF Urine Bacteria Many /HPF (0-FEW) Test 09/29/19 08:35 09/29/19 09:04 Lactic Acid Level 2.5 mmol/L (0.4-2.0) Glucose (Fingerstick) 255 mg/dL (70-99) Objective Assessment Influenza B w/ sepsis. Fever Leukocytosis Hypotension, off pressors Constipation h/o CVA w/ right hemiparesis Plan Plan of Care Continue Tamiflu Continue vancomycin and restart Zosyn F/u cultures Monitor labs and renal function closely Bowel regime per primary Maintain aspiration precautions check procalcitonin level Thank you [id number] Patient seen and examined. Chart reviewed in detail. Case discussed with [employer]. Agree with above plan. LAURIE HERNANDEZ APRN Sep 29, 2019 12:56 LORENZO DICKERSON MD Sep 29, 2019 18:07
[2019-09-29] MEDS: PIPERACILLIN/TAZOBACTAM 3.375 GM in IV NORMAL SALINE 50ML 50 ML IV SCH ×2 (13:30→18:00)
--- NOTE | 2019-09-29 14:54 | CONS ---
DATE OF CONSULTATION: 09/29/2019 This is Khris Bullock, nurse practitioner dictating for Dr. Lorenzo Dickerson, Infectious Disease. REFERRING PHYSICIAN: Ignacia Escobedo MD REASON FOR CONSULTATION: Sepsis and positive flu. HISTORY OF PRESENT ILLNESS: This patient is a 69-year-old female, senior care resident with a history of CVA and right hemiparesis, wheelchair bound. She was in her usual state of health when yesterday she developed acute onset of shortness of air, dry cough, body aches, and shakes. On arrival to the ER, she had a temperature of 104.4. Her WBC count was 17,200, segs 74%, bands 12%. Her lactic acid was 3.0. She tested positive for influenza B. A chest x-ray showed mild interstitial opacities bilaterally. She was hypotensive, requiring a pressor support. A central line was placed. She was dosed with vancomycin, Zosyn, and Tamiflu. The patient says she is feeling better. Her work of breathing is less. She is requiring supplemental oxygen of 4 liters. She denies headache, nasal/sinus congestion or sore throat. Denies difficulty swallowing. She complained of some abdominal pain earlier. A CT abdomen/pelvis showed severe dilatation of the distal sigmoid and rectal region with a large amount of stool. She is now on stool softeners and MiraLax. She denies nausea or vomiting. Denies rash or itching. She is hoping to return to the senior care tomorrow for her biweekly shower. She has no wounds. PAST MEDICAL HISTORY: Hypertension, CVA with right-sided hemiparesis. Hypothyroidism. PAST SURGICAL HISTORY: No significant past surgical history. FAMILY HISTORY: Noncontributory. SOCIAL HISTORY: The patient is . She lives in a senior care for the past 3 years. ALLERGIES: No known drug allergies. MEDICATIONS: Vancomycin, one time dose of Zosyn in the ER, Tamiflu, MiraLax, Colace, and Lasix. Other medications are available and have been reviewed on the JAN. REVIEW OF SYSTEMS: Per HPI, otherwise all other review of systems are negative. PHYSICAL EXAMINATION: VITAL SIGNS: Temperature is 99.4, T-max 104.4, blood pressure 111/74, heart rate 108, respiratory rate 20, pulse oximetry is 100% on 4 liters oxygen. BMI 32. GENERAL: The patient is propped up in bed, alert, finishing lunch. HEENT: Pupils equally round. Oral cavity pink and moist. No lesions. NECK: Supple. LUNGS: Clear to auscultation. CARDIAC: S1, S2. ABDOMEN: Obese, soft, nontender with bowel sounds present. GENITOURINARY: Awake, in place. EXTREMITIES: No gross edema or cyanosis. SKIN: Warm to touch. No signs of rash. NEUROLOGIC: Alert, answering questions appropriately. RIJ (09-29) without signs of any complications. LABORATORY DATA: Today's WBC 17.2, hemoglobin 13.4, platelets 245,000, segs 74%, bands 12%. Electrolytes are unremarkable. Creatinine 0.9, BUN 12, glucose 226. Lactic acid 2.5 from 3.6, total bilirubin 0.6, AST 35, ALT 31. BNP 210, albumin 3.4. Urinalysis positive for wbc's, leukocyte esterase, blood, few squamous epithelial cells and bacteria. Influenza screen B positive. Abdominal/pelvis CT per HPI also shows patchy opacities at lung bases which could be from atelectasis or infiltrate. Urine and blood cultures are pending. ASSESSMENT: 1. Influenza B with sepsis. 2. Fever. 3. Leukocytosis. 4. Hypotension, now off pressor support. 5. Constipation. 6. History of cerebrovascular accident. PLAN: 1. Continue the Tamiflu. 2. Continue the vancomycin and restart Zosyn. 3. Follow up on cultures. 4. Monitor labs and renal function closely. A bowel regimen per primary. 5. Maintain aspiration precautions. Thank you, Dr. Escobedo, for asking us to participate in this patient's care. Should you have further questions or concerns, please call. LORENZO DICKERSON MD DR: ROHIT/margo JOB#: [id number] / [id number]
[2019-09-29] MEDS ORDERED: VANCOMYCIN 1 GM in IV NORMAL SALINE 250ML 250 ML IV SCH (20:00)
[2019-09-29] MEDS: MIRTAZAPINE 15 MG TABLET PO SCH (20:59)
[2019-09-29] MEDS: LACTOBACILLUS RHAMNOSUS GG 1 CAPSULE. PO SCH (21:00)
[2019-09-30] VITALS (29 sets, daily range): BP systolic 72–158; BP diastolic 52–100
[2019-09-30] MEDS: NOREPINEPHRIN 8MG/250ML PREMIX 250 ML IV PRN ×2 (00:53→17:17)
[2019-09-30 02:07] LABS: HEMOGLOBIN A1C 6.2 % (4.8-5.6)
[2019-09-30] MEDS: LEVOTHYROXINE 100 MCG TABLET PO SCH (05:56)
[2019-09-30] MEDS: PIPERACILLIN/TAZOBACTAM 3.375 GM in IV NORMAL SALINE 50ML 50 ML IV SCH ×6 (06:02→23:44)
[2019-09-30 06:30] LABS: BASO # 0.1 x10^3/uL (0.0-0.2); BASO % 1 % (0-3); EOS # 0.1 x10^3/uL (0.0-0.7); EOS % 1 % (0-3); HEMATOCRIT 36.7 % (36.0-47.0); HEMOGLOBIN 11.8 g/dL (12.0-15.5); LYMPH # 2.4 x10^3/uL (1.0-4.8); LYMPH % 18 % (24-48); MEAN CORPUSCULAR HEMOGLOBIN 28 pg (25-35); MEAN CORPUSCULAR HGB CONC 32 g/dL (31-37); MEAN CORPUSCULAR VOLUME 88 fL (79-100); MONO # 1.3 x10^3/uL (0.0-1.1); MONO % 10 % (0-9); NEUT # 9.2 x10^3/uL (1.8-7.7); NEUT % 70 % (31-73); PLATELET COUNT 234 x10^3/uL (140-400); RED BLOOD COUNT 4.18 x10^6/uL (3.50-5.40); RED CELL DISTRIBUTION WIDTH 15.3 % (11.5-14.5); WHITE BLOOD COUNT 13.1 x10^3/uL (4.0-11.0)
[2019-09-30 06:41] LABS: ALBUMIN 2.6 g/dL (3.4-5.0); ALBUMIN/GLOBULIN RATIO 0.5 (1.0-1.7); CALCIUM 8.4 mg/dL (8.5-10.1); CREATININE 0.8 mg/dL (0.6-1.0); GFR 86.1; TOTAL BILIRUBIN 0.3 mg/dL (0.2-1.0); TOTAL PROTEIN 7.4 g/dL (6.4-8.2)
[2019-09-30 06:44] LABS: POTASSIUM 2.9 mmol/L (3.5-5.1)
[2019-09-30] MEDS ORDERED: POTASSIUM CHLORIDE 20 MEQ TABLET.ER. PO ONE ×2 (07:00→09:00)
--- NOTE | 2019-09-30 07:20 | PDOC ---
Infectious Disease Note Subjective Subjective pt is feeling better ROS ROS no n/v/d/sob/fever Vital Sign Vital Signs Vital Signs Date Time Temp Pulse Resp B/P (MAP) Pulse Ox O2 Delivery O2 Flow Rate FiO2 09/30/19 06:00 97 20 101/82 (88) 99 Nasal Cannula 4.0 09/30/19 04:00 98.8 98.8 Physical Exam PHYSICAL EXAM GENERAL: The patient is propped up in bed, alert, finishing lunch. HEENT: Pupils equally round. Oral cavity pink and moist. No lesions. NECK: Supple. LUNGS: Clear to auscultation. CARDIAC: S1, S2. ABDOMEN: Obese, soft, nontender with bowel sounds present. GENITOURINARY: Awake, in place. EXTREMITIES: No gross edema or cyanosis. SKIN: Warm to touch. No signs of rash. left leg cellulitis NEUROLOGIC: Alert, answering questions appropriately. RIJ (09-29) without signs of any complications. Labs Lab Laboratory Tests Test 09/29/19 08:35 09/29/19 09:04 09/29/19 16:50 09/29/19 19:30 Lactic Acid Level 2.5 mmol/L (0.4-2.0) 1.4 mmol/L (0.4-2.0) Glucose (Fingerstick) 255 mg/dL (70-99) 204 mg/dL (70-99) Procalcitonin 6.03 ng/mL (0.00-0.10) Test 09/30/19 06:00 White Blood Count 13.1 x10^3/uL (4.0-11.0) Red Blood Count 4.18 x10^6/uL (3.50-5.40) Hemoglobin 11.8 g/dL (12.0-15.5) Hematocrit 36.7 % (36.0-47.0) Mean Corpuscular Volume 88 fL (79-100) Mean Corpuscular Hemoglobin 28 pg (25-35) Mean Corpuscular Hemoglobin Concent 32 g/dL (31-37) Red Cell Distribution Width 15.3 % (11.5-14.5) Platelet Count 234 x10^3/uL (140-400) Neutrophils (%) (Auto) 70 % (31-73) Lymphocytes (%) (Auto) 18 % (24-48) Monocytes (%) (Auto) 10 % (0-9) Eosinophils (%) (Auto) 1 % (0-3) Basophils (%) (Auto) 1 % (0-3) Neutrophils # (Auto) 9.2 x10^3/uL (1.8-7.7) Lymphocytes # (Auto) 2.4 x10^3/uL (1.0-4.8) Monocytes # (Auto) 1.3 x10^3/uL (0.0-1.1) Eosinophils # (Auto) 0.1 x10^3/uL (0.0-0.7) Basophils # (Auto) 0.1 x10^3/uL (0.0-0.2) Sodium Level 145 mmol/L (136-145) Potassium Level 2.9 mmol/L (3.5-5.1) Chloride Level 108 mmol/L (98-107) Carbon Dioxide Level 27 mmol/L (21-32) Anion Gap 10 (6-14) Blood Urea Nitrogen 6 mg/dL (7-20) Creatinine 0.8 mg/dL (0.6-1.0) Estimated GFR (Cockcroft-Gault) 86.1 BUN/Creatinine Ratio 8 (6-20) Glucose Level 166 mg/dL (70-99) Calcium Level 8.4 mg/dL (8.5-10.1) Total Bilirubin 0.3 mg/dL (0.2-1.0) Aspartate Amino Transf (AST/SGOT) 17 U/L (15-37) Alanine Aminotransferase (ALT/SGPT) 18 U/L (14-59) Alkaline Phosphatase 78 U/L (46-116) Total Protein 7.4 g/dL (6.4-8.2) Albumin 2.6 g/dL (3.4-5.0) Albumin/Globulin Ratio 0.5 (1.0-1.7) Micro Microbiology 09/29/19 Blood Culture - Preliminary, Resulted NO GROWTH AFTER 1 DAY Objective Assessment 1. Influenza B 2. Fever. 3. Leukocytosis. 4. Hypotension, improving 5. Constipation. 6. History of cerebrovascular accident. 7. Left leg cellulitis with sepsis Plan Plan of Care Continue Tamiflu Continue Zosyn,, d/c vanac F/u cultures Monitor labs and renal function closely Bowel regime per primary Maintain aspiration precautions check procalcitonin level ARANGO,NICHOLAS R MD Sep 30, 2019 07:20
[2019-09-30] MEDS: IV NORMAL SALINE 1000ML BAG 1,000 ML IV SCH ×2 (07:37→15:00)
[2019-09-30] MEDS: IPRATRPIUM/ALBUTEROL 0.5/2.5MG 3 ML NEBU. NEB SCH ×3 (07:41→19:43)
[2019-09-30] MEDS: glyBURIDE 5 MG TABLET PO SCH ×2 (08:46→17:18)
[2019-09-30] MEDS: diazePAM 2 MG TABLET PO SCH ×2 (08:46→21:05)
[2019-09-30] MEDS: OSELTAMIVIR 75 MG CAPSULE PO SCH ×2 (08:46→21:05)
[2019-09-30] MEDS: FOLIC ACID 1 MG TABLET. PO SCH (08:46)
[2019-09-30] MEDS: LACTOBACILLUS RHAMNOSUS GG 1 CAPSULE. PO SCH ×2 (08:46→21:05)
[2019-09-30] MEDS: CYCLOBENZAPRINE 10 MG TABLET. PO SCH ×3 (08:47→21:05)
[2019-09-30] MEDS: ASPIRIN CHEWABLE 81 MG TABLET. PO SCH (08:47)
[2019-09-30] MEDS: MULTIVITAMIN with MINERAL TABLET. PO SCH (08:47)
[2019-09-30] MEDS: THIAMINE 100 MG TABLET. PO SCH (08:47)
[2019-09-30] MEDS: DOCUSATE SODIUM 100 MG CAPSULE. PO SCH (08:47)
[2019-09-30] MEDS: POTASSIUM CHLORIDE 10 MEQ TABLET.ER. PO SCH (08:48)
[2019-09-30] MEDS: CETIRIZINE HCL 10 MG TABLET. PO SCH (08:49)
[2019-09-30] MEDS: oxyCODONE IR 5 MG TABLET PO SCH ×4 (08:49→21:05)
--- NOTE | 2019-09-30 09:16 | NUR ---
IP: Pt is influenza + requiring droplet precautions for 7 days and 24 hours without a fever, whichever is longest.
--- NOTE | 2019-09-30 09:26 | PDOC ---
PROGRESS NOTES Chief Complaint Chief Complaint Influenza B Septic shock Constipation. History of cerebrovascular accident. 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 Positive flu B, cellulitis, Some haziness CXR. Admitted to ICU on levophed. Seen by ID in consultation. K 2.9 this morning. She is breathing somewhat better. Still on levophed. Had a BM. Orta still in place. She is requesting to work with PT. Denies CP CC time 32 minutes Vitals Vitals Vital Signs Date Time Temp Pulse Resp B/P (MAP) Pulse Ox O2 Delivery O2 Flow Rate FiO2 09/30/19 08:49 16 Nasal Cannula 3.0 09/30/19 07:43 98 09/30/19 06:00 97 101/82 (88) 09/30/19 04:00 98.8 98.8 Physical Exam Physical Exam GENERAL: The patient is propped up in bed, alert, finishing lunch. HEENT: Pupils equally round. Oral cavity pink and moist. No lesions. NECK: Supple. LUNGS: Clear to auscultation. CARDIAC: S1, S2. ABDOMEN: Obese, soft, nontender with bowel sounds present. GENITOURINARY: Awake, in place. EXTREMITIES: No gross edema or cyanosis. SKIN: Warm to touch. No signs of rash. left leg cellulitis NEUROLOGIC: Alert, answering questions appropriately. RIJ (-) without signs of any complications. General: Alert, Oriented X3, Cooperative, No acute distress Lungs: Clear Abdomen: Normal bowel sounds, Soft, No tenderness, No hepatosplenomegaly, No masses Extremities: No clubbing, No cyanosis, Other (left sided hemiplegia) Skin: No rashes, No breakdown, No significant lesion Labs LABS Laboratory Tests Test 09/29/19 16:50 09/29/19 19:30 09/30/19 06:00 Glucose (Fingerstick) 204 mg/dL (70-99) Lactic Acid Level 1.4 mmol/L (0.4-2.0) Procalcitonin 6.03 ng/mL (0.00-0.10) White Blood Count 13.1 x10^3/uL (4.0-11.0) Red Blood Count 4.18 x10^6/uL (3.50-5.40) Hemoglobin 11.8 g/dL (12.0-15.5) Hematocrit 36.7 % (36.0-47.0) Mean Corpuscular Volume 88 fL (79-100) Mean Corpuscular Hemoglobin 28 pg (25-35) Mean Corpuscular Hemoglobin Concent 32 g/dL (31-37) Red Cell Distribution Width 15.3 % (11.5-14.5) Platelet Count 234 x10^3/uL (140-400) Neutrophils (%) (Auto) 70 % (31-73) Lymphocytes (%) (Auto) 18 % (24-48) Monocytes (%) (Auto) 10 % (0-9) Eosinophils (%) (Auto) 1 % (0-3) Basophils (%) (Auto) 1 % (0-3) Neutrophils # (Auto) 9.2 x10^3/uL (1.8-7.7) Lymphocytes # (Auto) 2.4 x10^3/uL (1.0-4.8) Monocytes # (Auto) 1.3 x10^3/uL (0.0-1.1) Eosinophils # (Auto) 0.1 x10^3/uL (0.0-0.7) Basophils # (Auto) 0.1 x10^3/uL (0.0-0.2) Sodium Level 145 mmol/L (136-145) Potassium Level 2.9 mmol/L (3.5-5.1) Chloride Level 108 mmol/L (98-107) Carbon Dioxide Level 27 mmol/L (21-32) Anion Gap 10 (6-14) Blood Urea Nitrogen 6 mg/dL (7-20) Creatinine 0.8 mg/dL (0.6-1.0) Estimated GFR (Cockcroft-Gault) 86.1 BUN/Creatinine Ratio 8 (6-20) Glucose Level 166 mg/dL (70-99) Calcium Level 8.4 mg/dL (8.5-10.1) Total Bilirubin 0.3 mg/dL (0.2-1.0) Aspartate Amino Transf (AST/SGOT) 17 U/L (15-37) Alanine Aminotransferase (ALT/SGPT) 18 U/L (14-59) Alkaline Phosphatase 78 U/L (46-116) Total Protein 7.4 g/dL (6.4-8.2) Albumin 2.6 g/dL (3.4-5.0) Albumin/Globulin Ratio 0.5 (1.0-1.7) Assessment and Plan Assessmemt and Plan Problems Medical Problems: (1) Fecal impaction Status: Acute (2) Influenza B Status: Acute (3) Sepsis Status: Acute Comment Review of Relevant I have reviewed the following items nora (where applicable) has been applied. Labs Laboratory Tests Test 09/29/19 00:43 09/29/19 02:35 09/29/19 03:27 09/29/19 04:50 White Blood Count 17.2 x10^3/uL (4.0-11.0) Red Blood Count 4.75 x10^6/uL (3.50-5.40) Hemoglobin 13.4 g/dL (12.0-15.5) Hematocrit 41.3 % (36.0-47.0) Mean Corpuscular Volume 87 fL (79-100) Mean Corpuscular Hemoglobin 28 pg (25-35) Mean Corpuscular Hemoglobin Concent 33 g/dL (31-37) Red Cell Distribution Width 14.7 % (11.5-14.5) Platelet Count 245 x10^3/uL (140-400) Neutrophils (%) (Auto) 86 % (31-73) Lymphocytes (%) (Auto) 7 % (24-48) Monocytes (%) (Auto) 7 % (0-9) Eosinophils (%) (Auto) 0 % (0-3) Basophils (%) (Auto) 1 % (0-3) Neutrophils # (Auto) 14.8 x10^3/uL (1.8-7.7) Lymphocytes # (Auto) 1.1 x10^3/uL (1.0-4.8) Monocytes # (Auto) 1.2 x10^3/uL (0.0-1.1) Eosinophils # (Auto) 0.0 x10^3/uL (0.0-0.7) Basophils # (Auto) 0.1 x10^3/uL (0.0-0.2) Segmented Neutrophils % 74 % (35-66) Band Neutrophils % 12 % (0-9) Lymphocytes % 8 % (24-48) Monocytes % 6 % (0-10) Toxic Granulation Slight Toxic Vacuolation Slight Platelet Estimate Adequate (ADEQUATE) Sodium Level 138 mmol/L (136-145) Potassium Level 3.8 mmol/L (3.5-5.1) Chloride Level 99 mmol/L (98-107) Carbon Dioxide Level 26 mmol/L (21-32) Anion Gap 13 (6-14) Blood Urea Nitrogen 12 mg/dL (7-20) Creatinine 0.9 mg/dL (0.6-1.0) Estimated GFR (Cockcroft-Gault) 75.1 BUN/Creatinine Ratio 13 (6-20) Glucose Level 226 mg/dL (70-99) Hemoglobin A1c 6.2 % (4.8-5.6) Lactic Acid Level 3.0 mmol/L (0.4-2.0) 3.6 mmol/L (0.4-2.0) Calcium Level 9.6 mg/dL (8.5-10.1) Total Bilirubin 0.6 mg/dL (0.2-1.0) Aspartate Amino Transf (AST/SGOT) 35 U/L (15-37) Alanine Aminotransferase (ALT/SGPT) 31 U/L (14-59) Alkaline Phosphatase 113 U/L (46-116) SP-Oxw-V-Type Natriuretic Peptide 210 pg/mL (0-124) Total Protein 8.7 g/dL (6.4-8.2) Albumin 3.4 g/dL (3.4-5.0) Albumin/Globulin Ratio 0.6 (1.0-1.7) Influenza Type A Antigen Negative (NEGATIVE) Influenza Type B Antigen Positive (NEGATIVE) Urine Collection Type Unknown Urine Color Yellow Urine Clarity Cloudy Urine pH 5.0 Urine Specific Red [place] 1.010 Urine Protein 30 mg/dL (NEG-TRACE) Urine Glucose (UA) Negative mg/dL (NEG) Urine Ketones (Stick) Negative mg/dL (NEG) Urine Blood Large (NEG) Urine Nitrite Negative (NEG) Urine Bilirubin Negative (NEG) Urine Urobilinogen Dipstick 1.0 mg/dL (0.2 mg/dL) Urine Leukocyte Esterase Small (NEG) Urine RBC 20-40 /HPF (0-2) Urine WBC 5-10 /HPF (0-4) Urine Squamous Epithelial Cells Few /LPF Urine Amorphous Sediment Present /HPF Urine Bacteria Many /HPF (0-FEW) Test 09/29/19 08:35 09/29/19 09:04 09/29/19 16:50 09/29/19 19:30 Lactic Acid Level 2.5 mmol/L (0.4-2.0) 1.4 mmol/L (0.4-2.0) Glucose (Fingerstick) 255 mg/dL (70-99) 204 mg/dL (70-99) Procalcitonin 6.03 ng/mL (0.00-0.10) Test 09/30/19 06:00 White Blood Count 13.1 x10^3/uL (4.0-11.0) Red Blood Count 4.18 x10^6/uL (3.50-5.40) Hemoglobin 11.8 g/dL (12.0-15.5) Hematocrit 36.7 % (36.0-47.0) Mean Corpuscular Volume 88 fL (79-100) Mean Corpuscular Hemoglobin 28 pg (25-35) Mean Corpuscular Hemoglobin Concent 32 g/dL (31-37) Red Cell Distribution Width 15.3 % (11.5-14.5) Platelet Count 234 x10^3/uL (140-400) Neutrophils (%) (Auto) 70 % (31-73) Lymphocytes (%) (Auto) 18 % (24-48) Monocytes (%) (Auto) 10 % (0-9) Eosinophils (%) (Auto) 1 % (0-3) Basophils (%) (Auto) 1 % (0-3) Neutrophils # (Auto) 9.2 x10^3/uL (1.8-7.7) Lymphocytes # (Auto) 2.4 x10^3/uL (1.0-4.8) Monocytes # (Auto) 1.3 x10^3/uL (0.0-1.1) Eosinophils # (Auto) 0.1 x10^3/uL (0.0-0.7) Basophils # (Auto) 0.1 x10^3/uL (0.0-0.2) Sodium Level 145 mmol/L (136-145) Potassium Level 2.9 mmol/L (3.5-5.1) Chloride Level 108 mmol/L (98-107) Carbon Dioxide Level 27 mmol/L (21-32) Anion Gap 10 (6-14) Blood Urea Nitrogen 6 mg/dL (7-20) Creatinine 0.8 mg/dL (0.6-1.0) Estimated GFR (Cockcroft-Gault) 86.1 BUN/Creatinine Ratio 8 (6-20) Glucose Level 166 mg/dL (70-99) Calcium Level 8.4 mg/dL (8.5-10.1) Total Bilirubin 0.3 mg/dL (0.2-1.0) Aspartate Amino Transf (AST/SGOT) 17 U/L (15-37) Alanine Aminotransferase (ALT/SGPT) 18 U/L (14-59) Alkaline Phosphatase 78 U/L (46-116) Total Protein 7.4 g/dL (6.4-8.2) Albumin 2.6 g/dL (3.4-5.0) Albumin/Globulin Ratio 0.5 (1.0-1.7) Laboratory Tests Test 09/29/19 16:50 09/29/19 19:30 09/30/19 06:00 Glucose (Fingerstick) 204 mg/dL (70-99) Lactic Acid Level 1.4 mmol/L (0.4-2.0) Procalcitonin 6.03 ng/mL (0.00-0.10) White Blood Count 13.1 x10^3/uL (4.0-11.0) Red Blood Count 4.18 x10^6/uL (3.50-5.40) Hemoglobin 11.8 g/dL (12.0-15.5) Hematocrit 36.7 % (36.0-47.0) Mean Corpuscular Volume 88 fL (79-100) Mean Corpuscular Hemoglobin 28 pg (25-35) Mean Corpuscular Hemoglobin Concent 32 g/dL (31-37) Red Cell Distribution Width 15.3 % (11.5-14.5) Platelet Count 234 x10^3/uL (140-400) Neutrophils (%) (Auto) 70 % (31-73) Lymphocytes (%) (Auto) 18 % (24-48) Monocytes (%) (Auto) 10 % (0-9) Eosinophils (%) (Auto) 1 % (0-3) Basophils (%) (Auto) 1 % (0-3) Neutrophils # (Auto) 9.2 x10^3/uL (1.8-7.7) Lymphocytes # (Auto) 2.4 x10^3/uL (1.0-4.8) Monocytes # (Auto) 1.3 x10^3/uL (0.0-1.1) Eosinophils # (Auto) 0.1 x10^3/uL (0.0-0.7) Basophils # (Auto) 0.1 x10^3/uL (0.0-0.2) Sodium Level 145 mmol/L (136-145) Potassium Level 2.9 mmol/L (3.5-5.1) Chloride Level 108 mmol/L (98-107) Carbon Dioxide Level 27 mmol/L (21-32) Anion Gap 10 (6-14) Blood Urea Nitrogen 6 mg/dL (7-20) Creatinine 0.8 mg/dL (0.6-1.0) Estimated GFR (Cockcroft-Gault) 86.1 BUN/Creatinine Ratio 8 (6-20) Glucose Level 166 mg/dL (70-99) Calcium Level 8.4 mg/dL (8.5-10.1) Total Bilirubin 0.3 mg/dL (0.2-1.0) Aspartate Amino Transf (AST/SGOT) 17 U/L (15-37) Alanine Aminotransferase (ALT/SGPT) 18 U/L (14-59) Alkaline Phosphatase 78 U/L (46-116) Total Protein 7.4 g/dL (6.4-8.2) Albumin 2.6 g/dL (3.4-5.0) Albumin/Globulin Ratio 0.5 (1.0-1.7) Microbiology 09/29/19 Blood Culture - Preliminary, Resulted NO GROWTH AFTER 1 DAY Medications Current Medications Acetaminophen (Tylenol) 1,000 mg 1X ONCE PO Last administered on 09/29/19at 01:01; Start 09/29/19 at 01:00; Stop 09/29/19 at 01:01; Status DC Piperacillin Sod/ Tazobactam Sod 4.5 gm/Sodium Chloride 100 ml @ 200 mls/hr 1X ONCE IV Last administered on 09/29/19at 01:02; Start 09/29/19 at 01:00; Stop 09/29/19 at 01:29; Status DC Vancomycin HCl (Vanco Per Pharmacy) 1 each PRN DAILY PRN MC SEE COMMENTS Last administered on 09/29/19at 06:34; Start 09/29/19 at 00:45; Stop 09/30/19 at 07:23; Status DC Sodium Chloride 1,000 ml @ 1,000 mls/hr 1X ONCE IV Last administered on 09/29/19at 01:01; Start 09/29/19 at 01:00; Stop 09/29/19 at 01:59; Status DC Furosemide (Lasix) 40 mg 1X ONCE IVP Last administered on 09/29/19at 01:50; Start 09/29/19 at 01:30; Stop 09/29/19 at 01:31; Status DC Vancomycin HCl 1.75 gm/Sodium Chloride 500 ml @ 250 mls/hr 1X ONCE IV Last administered on 09/29/19at 02:22; Start 09/29/19 at 02:00; Stop 09/29/19 at 03:59; Status DC Iohexol (Omnipaque 300 Mg/ml) 75 ml 1X ONCE IV Last administered on 09/29/19at 02:00; Start 09/29/19 at 02:00; Stop 09/29/19 at 02:01; Status DC Sodium Chloride 1,000 ml @ 1,000 mls/hr Q1H IV Last administered on 09/29/19at 19:00; Start 09/29/19 at 02:00; Stop 09/29/19 at 03:21; Status DC Info (CONTRAST GIVEN -- Rx MONITORING) 1 each PRN DAILY PRN MC SEE COMMENTS; Start 09/29/19 at 02:00; Stop 10/01/19 at 01:59 Norepinephrine Bitartrate 250 ml @ 0 mls/hr CONT PRN IV SEE I/O RECORD Last administered on 09/30/19at 00:53; Start 09/29/19 at 02:45 Ondansetron HCl (Zofran) 4 mg PRN Q8HRS PRN IV NAUSEA/VOMITING 1ST CHOICE; Start 09/29/19 at 03:45; Stop 09/29/19 at 08:24; Status DC Acetaminophen (Tylenol) 650 mg PRN Q4HRS PRN PO FEVER; Start 09/29/19 at 03:45; Stop 09/29/19 at 08:22; Status DC Albuterol/ Ipratropium (Duoneb) 3 ml RTQID NEB Last administered on 09/30/19 07:41; Start 09/29/19 at 08:00; Stop 09/30/19 at 07:59; Status DC Vancomycin HCl 1 gm/Sodium Chloride 250 ml @ 250 mls/hr Q18H IV Last administered on 09/29/19 20:08; Start 09/29/19 at 20:00; Stop 09/30/19 at 07:21; Status DC Vancomycin HCl (Vancomycin Trough Level) 1 each 1X ONCE MC ; Start 09/30/19 at 13:30; Stop 09/30/19 at 13:31; Status Cancel Aspirin (Children'S Aspirin) 81 mg DAILY PO Last administered on 09/30/19 08:47; Start 09/29/19 at 09:00 Diazepam (Valium) 2 mg BID PO Last administered on 09/30/19 08:46; Start 09/29/19 at 09:00 Folic Acid (Folic Acid) 1 mg DAILY PO Last administered on 09/30/19 08:46; Start 09/29/19 at 09:00 Levothyroxine Sodium (Synthroid) 100 mcg DAILY06 PO Last administered on 09/30/19 05:56; Start 09/29/19 at 09:00 Potassium Chloride (Klor-Con) 10 meq DAILY PO Last administered on 09/30/19 08:48; Start 09/29/19 at 09:00 Tramadol HCl (Ultram) 50 mg BID PO Last administered on 09/29/19 20:59; Start 09/29/19 at 09:00 Cyclobenzaprine HCl (Flexeril) 10 mg TID PO Last administered on 09/30/19 08:47; Start 09/29/19 at 09:00 Cetirizine HCl (ZyrTEC) 10 mg DAILY PO Last administered on 09/30/19 08:49; Start 09/29/19 at 09:00 Mirtazapine (Remeron) 30 mg QHS PO Last administered on 09/29/19 20:59; Start 09/29/19 at 21:00 Oxycodone HCl (Roxicodone) 5 mg QID PO Last administered on 09/30/19 08:49; Start 09/29/19 at 09:00 Thiamine Mononitrate (Vitamin B-1) 100 mg DAILY PO Last administered on 09/30/19 08:47; Start 09/29/19 at 09:00 Temazepam (Restoril) 7.5 mg PRN QHS PRN PO INSOMNIA; Start 09/29/19 at 08:15 Multivitamins (Thera M Plus) 1 tab DAILY PO Last administered on 09/30/19 08:47; Start 09/29/19 at 09:00 Sodium Monofluorophosphate (Fleet Adult) 133 ml 1X ONCE OH Last administered on 09/29/19 09:41; Start 09/29/19 at 08:30; Stop 09/29/19 at 08:33; Status DC Sodium Monofluorophosphate (Fleet Adult) 133 ml DAILY PRN OH CONSTIPATION; Start 09/29/19 at 08:15 Polyethylene Glycol (miraLAX PACKET) 17 gm 1X ONCE PO Last administered on 09/29/19 09:42; Start 09/29/19 at 08:30; Stop 09/29/19 at 08:33; Status DC Polyethylene Glycol (miraLAX PACKET) 17 gm PRN DAILY PRN PO CONSTIPATION; Start 09/29/19 at 08:15 Docusate Sodium (Colace) 100 mg DAILY PO Last administered on 09/30/19 08:47; Start 09/29/19 at 09:00 Ondansetron HCl (Zofran) 4 mg PRN Q6HRS PRN IVP NAUSEA/VOMITING; Start 09/29/19 at 08:15 Acetaminophen (Tylenol) 500 mg PRN Q6HRS PRN PO MILD PAIN / TEMP; Start 09/29/19 at 08:15 Sodium Chloride 1,000 ml @ 100 mls/hr Q10H IV Last administered on 09/30/19 07:37; Start 09/29/19 at 09:00 Oseltamivir Phosphate (Tamiflu) 75 mg BID PO Last administered on 09/30/19 08:46; Start 09/29/19 at 09:00; Stop 10/04/19 at 08:59 Metformin HCl (Glucophage) 500 mg BIDWMEALS PO ; Start 10/01/19 at 08:00 Glyburide (Diabeta) 5 mg BIDWMEALS PO Last administered on 09/30/19at 08:46; Start 09/29/19 at 09:30 Piperacillin Sod/ Tazobactam Sod 3.375 gm/Sodium Chloride 50 ml @ 100 mls/hr Q6HRS IV Last administered on 09/30/19at 06:02; Start 09/29/19 at 13:30 Lactobacillus Rhamnosus (Culturelle) 1 cap BID PO Last administered on 09/30/19at 08:46; Start 09/29/19 at 21:00 Potassium Chloride (Klor-Con) 20 meq 1X ONCE PO ; Start 09/30/19 at 09:00; Stop 09/30/19 at 09:01; Status DC Potassium Chloride (Klor-Con) 40 meq 1X ONCE PO Last administered on 09/30/19at 08:48; Start 09/30/19 at 07:00; Stop 09/30/19 at 07:01; Status DC Active Scripts Active Reported Diazepam 2 Mg Tablet 2 Mg PO BID Thiamine Hcl 100 Mg Tablet 100 Mg PO DAILY Folic Acid 1 Mg Tablet 1 Tab PO DAILY Oxycodone Hcl 5 Mg Capsule 1 Cap PO QID Potassium Chloride 10 Meq Tablet.er 10 Meq PO DAILY Lasix (Furosemide) 20 Mg Tablet 1 Tab PO DAILY Tramadol Hcl 50 Mg Tablet 1 Tab PO BID Synthroid (Levothyroxine Sodium) 100 Mcg Tablet 1 Tab PO DAILY Melatonin 5 Mg Tablet 5 Mg PO Baclofen 10 Mg Tablet 1 Tab PO TID Multi Vitamin Daily (Multivitamin) 1 Each Tablet 1 Each PO Aspirin 81 Mg Tab.chew 1 Tab PO DAILY Loratadine 10 Mg Tablet 1 Tab PO DAILY Mirtazapine 30 Mg Tablet 1 Tab PO QHS Vitals/I & O Vital Sign - Last 24 Hours 09/29/19 09/29/19 09/29/19 09/29/19 09:46 09:51 10:00 10:46 Pulse 94 Resp 20 20 20 B/P (MAP) 133/71 (91) Pulse Ox 99 100 96 98 O2 Delivery Nasal Cannula Nasal Cannula Nasal Cannula Nasal Cannula O2 Flow Rate 4.0 4.0 4.0 09/29/19 09/29/19 09/29/19 09/29/19 11:00 12:00 12:00 13:00 Temp 99.4 99.4 Pulse 100 108 Resp 20 20 20 B/P (MAP) 126/71 (89) 111/74 (86) 104/ Pulse Ox 100 100 99 O2 Delivery Nasal Cannula Nasal Cannula Nasal Cannula Nasal Cannula O2 Flow Rate 4.0 4.0 4.0 4.0 09/29/19 09/29/19 09/29/19 09/29/19 13:32 14:00 14:42 15:00 Pulse 97 97 Resp 18 20 20 20 B/P (MAP) 90/60 (70) 80/64 (69) Pulse Ox 100 100 100 O2 Delivery Nasal Cannula Nasal Cannula Nasal Cannula Nasal Cannula O2 Flow Rate 4.0 4.0 4.0 4.0 09/29/19 09/29/19 09/29/19 09/29/19 16:00 16:00 16:20 17:00 Temp 98.7 98.7 Pulse 96 93 Resp 20 20 B/P (MAP) 89/63 (72) 92/65 (74) Pulse Ox 100 100 100 O2 Delivery Nasal Cannula Nasal Cannula Nasal Cannula Nasal Cannula O2 Flow Rate 4.0 4.0 4.0 4.0 09/29/19 09/29/19 09/29/19 09/29/19 18:00 19:00 20:00 20:00 Temp 98.8 98.8 Pulse 96 87 81 Resp 20 20 20 B/P (MAP) 103/79 (87) 101/74 (83) 119/76 (90) Pulse Ox 100 100 100 O2 Delivery Nasal Cannula Nasal Cannula Nasal Cannula Nasal Cannula O2 Flow Rate 4.0 4.0 4.0 4.0 09/29/19 09/29/19 09/29/19 09/29/19 20:59 21:00 22:00 23:00 Pulse 88 86 80 Resp 20 20 18 B/P (MAP) 119/86 (97) 97/71 (80) 95/77 (83) Pulse Ox 100 100 98 98 O2 Delivery Nasal Cannula Nasal Cannula Nasal Cannula Nasal Cannula O2 Flow Rate 4.0 4.0 4.0 4.0 09/29/19 09/29/19 09/30/19 09/30/19 23:59 23:59 00:24 01:07 Temp 98.8 98.8 Pulse 88 79 Resp 20 18 B/P (MAP) 118/78 (91) 93/71 (78) Pulse Ox 100 98 98 O2 Delivery Nasal Cannula Nasal Cannula Nasal Cannula Nasal Cannula O2 Flow Rate 4.0 4.0 4.0 4.0 09/30/19 09/30/19 09/30/19 09/30/19 02:00 03:00 04:00 04:00 Temp 98.8 98.8 Pulse 82 82 88 Resp 22 22 20 B/P (MAP) 97/64 (75) 101/65 (77) 120/78 (92) Pulse Ox 99 99 100 O2 Delivery Nasal Cannula Nasal Cannula Nasal Cannula Nasal Cannula O2 Flow Rate 4.0 4.0 4.0 4.0 09/30/19 09/30/19 09/30/19 09/30/19 05:00 06:00 07:43 08:49 Pulse 76 97 Resp 18 20 16 B/P (MAP) 108/68 (81) 101/82 (88) Pulse Ox 99 99 98 O2 Delivery Nasal Cannula Nasal Cannula Nasal Cannula Nasal Cannula O2 Flow Rate 4.0 4.0 3.0 3.0 Intake and Output 09/29/19 09/29/19 09/30/19 15:00 23:00 07:00 Intake Total 450 ml 1903 ml 1931 ml Output Total 1100 ml 625 ml 400 ml Balance -650 ml 1278 ml 1531 ml NARAYAN LINDSAY MD Sep 30, 2019 09:26
[2019-09-30] MEDS ORDERED: DEXTROSE 50% 25 GM / 50ML DISP.SYRIN. IV PRN (09:30)
[2019-09-30] MEDS: POTASSIUM CHLORIDE 10MEQ 100 ML IV SCH ×2 (10:12→11:34)
[2019-09-30] MEDS: INSULIN LISPRO 300 UNITS/3 ML VIAL. SQ SCH ×3 (11:30→21:03)
--- NOTE | 2019-09-30 14:16 | NUR ---
SS following for discharge planning. SS reviewed pt chart. Pt is from [facility], ; fax [phone]. SS contacted [facility] and verified that pt is a LTC resident from there facility and is able to return when medically stable for discharge. SS will continue to follow for discharge planning.
[2019-09-30] MEDS: traMADol 50 MG TABLET PO SCH ×2 (17:18→21:05)
--- NOTE | 2019-09-30 18:14 | NUR ---
Pt has had uneventful day. remains in ICU on Levophed per [facility]. Attempted to wean off Levo but BP MAP<65. Good UO and pt taking PO fluids and food. Denies any discomfort. No family here today but pt in good spirits. Talkative and watched TV thru day. No fever.
[2019-09-30] MEDS: MIRTAZAPINE 15 MG TABLET PO SCH (21:05)
[2019-10-01] VITALS (26 sets, daily range): BP systolic 85–137; BP diastolic 52–92
[2019-10-01] MEDS: IV NORMAL SALINE 1000ML BAG 1,000 ML IV SCH ×3 (01:00→20:35)
[2019-10-01] MEDS: PIPERACILLIN/TAZOBACTAM 3.375 GM in IV NORMAL SALINE 50ML 50 ML IV SCH ×4 (05:52→23:41)
[2019-10-01] MEDS: LEVOTHYROXINE 100 MCG TABLET PO SCH (05:52)
--- NOTE | 2019-10-01 07:14 | PDOC ---
Infectious Disease Note Subjective Subjective pt is feeling better ROS ROS no n/v/d/sob/fever Vital Sign Vital Signs Vital Signs Date Time Temp Pulse Resp B/P (MAP) Pulse Ox O2 Delivery O2 Flow Rate FiO2 10/01/19 06:00 88 20 106/68 (81) 99 Nasal Cannula 3.0 10/01/19 04:00 98.6 98.6 Physical Exam PHYSICAL EXAM GENERAL: The patient is propped up in bed, alert, finishing lunch. HEENT: Pupils equally round. Oral cavity pink and moist. No lesions. NECK: Supple. LUNGS: Clear to auscultation. CARDIAC: S1, S2. ABDOMEN: Obese, soft, nontender with bowel sounds present. GENITOURINARY: Awake, in place. EXTREMITIES: No gross edema or cyanosis. SKIN: Warm to touch. No signs of rash. left leg cellulitis NEUROLOGIC: Alert, answering questions appropriately. RIJ (09-29) without signs of any complications. Labs Lab Laboratory Tests Test 09/30/19 12:29 09/30/19 17:26 09/30/19 21:01 Glucose (Fingerstick) 156 mg/dL (70-99) 156 mg/dL (70-99) 166 mg/dL (70-99) Micro BLOOD CULTURE Final GRAM POSITIVE COCCI IN CLUSTERS, SUGGESTIVE OF STAPH, IN 1 OF 3 BOTTLES, TWO SETS DRAWN. CALLED TO CHICHO CHEATHAM RN IN ICU AT 10:45 ON 09/30/19 DW MT SENT TO [facility] FOR FURTHER WORKUP. - Objective Assessment 1. Influenza B 2. Fever. 3. Leukocytosis. 4. Hypotension, improving 5. Constipation. 6. History of cerebrovascular accident. 7. Left leg cellulitis with sepsis 8. BC + 1/3 G + cocci, likely contaminant Plan Plan of Care Continue Tamiflu Continue Zosyn,, F/u cultures Monitor labs and renal function closely Bowel regime per primary Maintain aspiration precautions NICHOLAS ARANGO MD Oct 01, 2019 07:14
[2019-10-01] MEDS: INSULIN LISPRO 300 UNITS/3 ML VIAL. SQ SCH ×4 (07:30→20:41)
[2019-10-01 07:36] LABS: BASO # 0.1 x10^3/uL (0.0-0.2); BASO % 1 % (0-3); EOS # 0.3 x10^3/uL (0.0-0.7); EOS % 3 % (0-3); HEMATOCRIT 35.9 % (36.0-47.0); HEMOGLOBIN 11.7 g/dL (12.0-15.5); LYMPH # 2.1 x10^3/uL (1.0-4.8); LYMPH % 25 % (24-48); MEAN CORPUSCULAR HEMOGLOBIN 28 pg (25-35); MEAN CORPUSCULAR HGB CONC 32 g/dL (31-37); MEAN CORPUSCULAR VOLUME 87 fL (79-100); MONO # 0.8 x10^3/uL (0.0-1.1); MONO % 9 % (0-9); NEUT # 5.3 x10^3/uL (1.8-7.7); NEUT % 62 % (31-73); PLATELET COUNT 243 x10^3/uL (140-400); RED BLOOD COUNT 4.14 x10^6/uL (3.50-5.40); RED CELL DISTRIBUTION WIDTH 14.9 % (11.5-14.5); WHITE BLOOD COUNT 8.6 x10^3/uL (4.0-11.0)
[2019-10-01] MEDS: IPRATRPIUM/ALBUTEROL 0.5/2.5MG 3 ML NEBU. NEB SCH ×4 (08:00→19:26)
[2019-10-01 08:01] LABS: CALCIUM 8.2 mg/dL (8.5-10.1); CREATININE 0.8 mg/dL (0.6-1.0); GFR 86.1; POTASSIUM 3.3 mmol/L (3.5-5.1)
[2019-10-01] MEDS: CYCLOBENZAPRINE 10 MG TABLET. PO SCH ×3 (08:26→20:41)
[2019-10-01] MEDS: OSELTAMIVIR 75 MG CAPSULE PO SCH ×2 (08:26→20:40)
[2019-10-01] MEDS: FOLIC ACID 1 MG TABLET. PO SCH (08:26)
[2019-10-01] MEDS: THIAMINE 100 MG TABLET. PO SCH (08:26)
[2019-10-01] MEDS: MULTIVITAMIN with MINERAL TABLET. PO SCH (08:26)
[2019-10-01] MEDS: DOCUSATE SODIUM 100 MG CAPSULE. PO SCH (08:26)
[2019-10-01] MEDS: traMADol 50 MG TABLET PO SCH ×2 (08:26→20:37)
[2019-10-01] MEDS: metFORMIN 500 MG TABLET PO SCH ×2 (08:26→17:00)
[2019-10-01] MEDS: LACTOBACILLUS RHAMNOSUS GG 1 CAPSULE. PO SCH ×2 (08:26→20:40)
[2019-10-01] MEDS: diazePAM 2 MG TABLET PO SCH ×2 (08:26→20:41)
[2019-10-01] MEDS: CETIRIZINE HCL 10 MG TABLET. PO SCH (08:27)
[2019-10-01] MEDS: glyBURIDE 5 MG TABLET PO SCH ×2 (08:27→17:00)
[2019-10-01] MEDS: ASPIRIN CHEWABLE 81 MG TABLET. PO SCH (08:27)
[2019-10-01] MEDS: oxyCODONE IR 5 MG TABLET PO SCH ×4 (08:27→20:40)
[2019-10-01] MEDS: POTASSIUM CHLORIDE 10 MEQ TABLET.ER. PO SCH (08:40)
--- NOTE | 2019-10-01 08:45 | PDOC ---
PROGRESS NOTES Chief Complaint Chief Complaint Influenza B Septic shock Constipation. History of cerebrovascular accident. 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 Positive flu B, cellulitis, Some haziness CXR. Admitted to ICU on levophed. Seen by ID in consultation. K 3.3 this morning. She is breathing somewhat better. Still on levophed. Had a BM. Orta still in place. She is requesting to work with PT. Denies CP. Feeling less short of breath. Plan: Downtitrate pressors. Some mobility may help. Unclear what her baseline BP is, but she notes she is normally hypertensive. Vitals Vitals Vital Signs Date Time Temp Pulse Resp B/P (MAP) Pulse Ox O2 Delivery O2 Flow Rate FiO2 10/01/19 08:27 96 Nasal Cannula 2.0 10/01/19 08:00 98.6 95 18 137/86 (103) 98.6 Physical Exam Physical Exam GENERAL: The patient is propped up in bed, alert, finishing lunch. HEENT: Pupils equally round. Oral cavity pink and moist. No lesions. NECK: Supple. LUNGS: Clear to auscultation. CARDIAC: S1, S2. ABDOMEN: Obese, soft, nontender with bowel sounds present. GENITOURINARY: Awake, in place. EXTREMITIES: No gross edema or cyanosis. SKIN: Warm to touch. No signs of rash. left leg cellulitis NEUROLOGIC: Alert, answering questions appropriately. RIJ (11-24) without signs of any complications. General: Alert, Oriented X3, Cooperative, No acute distress Lungs: Clear Abdomen: Normal bowel sounds, Soft, No tenderness, No hepatosplenomegaly, No masses Extremities: No clubbing, No cyanosis, Other (left sided hemiplegia) Skin: No rashes, No breakdown, No significant lesion Labs LABS Laboratory Tests Test 09/30/19 12:29 09/30/19 17:26 09/30/19 21:01 10/01/19 07:25 Glucose (Fingerstick) 156 mg/dL (70-99) 156 mg/dL (70-99) 166 mg/dL (70-99) White Blood Count 8.6 x10^3/uL (4.0-11.0) Red Blood Count 4.14 x10^6/uL (3.50-5.40) Hemoglobin 11.7 g/dL (12.0-15.5) Hematocrit 35.9 % (36.0-47.0) Mean Corpuscular Volume 87 fL (79-100) Mean Corpuscular Hemoglobin 28 pg (25-35) Mean Corpuscular Hemoglobin Concent 32 g/dL (31-37) Red Cell Distribution Width 14.9 % (11.5-14.5) Platelet Count 243 x10^3/uL (140-400) Neutrophils (%) (Auto) 62 % (31-73) Lymphocytes (%) (Auto) 25 % (24-48) Monocytes (%) (Auto) 9 % (0-9) Eosinophils (%) (Auto) 3 % (0-3) Basophils (%) (Auto) 1 % (0-3) Neutrophils # (Auto) 5.3 x10^3/uL (1.8-7.7) Lymphocytes # (Auto) 2.1 x10^3/uL (1.0-4.8) Monocytes # (Auto) 0.8 x10^3/uL (0.0-1.1) Eosinophils # (Auto) 0.3 x10^3/uL (0.0-0.7) Basophils # (Auto) 0.1 x10^3/uL (0.0-0.2) Sodium Level 142 mmol/L (136-145) Potassium Level 3.3 mmol/L (3.5-5.1) Chloride Level 107 mmol/L (98-107) Carbon Dioxide Level 27 mmol/L (21-32) Anion Gap 8 (6-14) Blood Urea Nitrogen 5 mg/dL (7-20) Creatinine 0.8 mg/dL (0.6-1.0) Estimated GFR (Cockcroft-Gault) 86.1 Glucose Level 140 mg/dL (70-99) Calcium Level 8.2 mg/dL (8.5-10.1) Assessment and Plan Assessmemt and Plan Problems Medical Problems: (1) Fecal impaction Status: Acute (2) Influenza B Status: Acute (3) Sepsis Status: Acute Comment Review of Relevant I have reviewed the following items nora (where applicable) has been applied. Labs Laboratory Tests Test 09/29/19 09:04 09/29/19 16:50 09/29/19 19:30 09/30/19 06:00 Glucose (Fingerstick) 255 mg/dL (70-99) 204 mg/dL (70-99) Lactic Acid Level 1.4 mmol/L (0.4-2.0) Procalcitonin 6.03 ng/mL (0.00-0.10) White Blood Count 13.1 x10^3/uL (4.0-11.0) Red Blood Count 4.18 x10^6/uL (3.50-5.40) Hemoglobin 11.8 g/dL (12.0-15.5) Hematocrit 36.7 % (36.0-47.0) Mean Corpuscular Volume 88 fL (79-100) Mean Corpuscular Hemoglobin 28 pg (25-35) Mean Corpuscular Hemoglobin Concent 32 g/dL (31-37) Red Cell Distribution Width 15.3 % (11.5-14.5) Platelet Count 234 x10^3/uL (140-400) Neutrophils (%) (Auto) 70 % (31-73) Lymphocytes (%) (Auto) 18 % (24-48) Monocytes (%) (Auto) 10 % (0-9) Eosinophils (%) (Auto) 1 % (0-3) Basophils (%) (Auto) 1 % (0-3) Neutrophils # (Auto) 9.2 x10^3/uL (1.8-7.7) Lymphocytes # (Auto) 2.4 x10^3/uL (1.0-4.8) Monocytes # (Auto) 1.3 x10^3/uL (0.0-1.1) Eosinophils # (Auto) 0.1 x10^3/uL (0.0-0.7) Basophils # (Auto) 0.1 x10^3/uL (0.0-0.2) Sodium Level 145 mmol/L (136-145) Potassium Level 2.9 mmol/L (3.5-5.1) Chloride Level 108 mmol/L (98-107) Carbon Dioxide Level 27 mmol/L (21-32) Anion Gap 10 (6-14) Blood Urea Nitrogen 6 mg/dL (7-20) Creatinine 0.8 mg/dL (0.6-1.0) Estimated GFR (Cockcroft-Gault) 86.1 BUN/Creatinine Ratio 8 (6-20) Glucose Level 166 mg/dL (70-99) Calcium Level 8.4 mg/dL (8.5-10.1) Magnesium Level 1.8 mg/dL (1.8-2.4) Total Bilirubin 0.3 mg/dL (0.2-1.0) Aspartate Amino Transf (AST/SGOT) 17 U/L (15-37) Alanine Aminotransferase (ALT/SGPT) 18 U/L (14-59) Alkaline Phosphatase 78 U/L (46-116) Total Protein 7.4 g/dL (6.4-8.2) Albumin 2.6 g/dL (3.4-5.0) Albumin/Globulin Ratio 0.5 (1.0-1.7) Test 09/30/19 12:29 09/30/19 17:26 09/30/19 21:01 10/01/19 07:25 Glucose (Fingerstick) 156 mg/dL (70-99) 156 mg/dL (70-99) 166 mg/dL (70-99) White Blood Count 8.6 x10^3/uL (4.0-11.0) Red Blood Count 4.14 x10^6/uL (3.50-5.40) Hemoglobin 11.7 g/dL (12.0-15.5) Hematocrit 35.9 % (36.0-47.0) Mean Corpuscular Volume 87 fL (79-100) Mean Corpuscular Hemoglobin 28 pg (25-35) Mean Corpuscular Hemoglobin Concent 32 g/dL (31-37) Red Cell Distribution Width 14.9 % (11.5-14.5) Platelet Count 243 x10^3/uL (140-400) Neutrophils (%) (Auto) 62 % (31-73) Lymphocytes (%) (Auto) 25 % (24-48) Monocytes (%) (Auto) 9 % (0-9) Eosinophils (%) (Auto) 3 % (0-3) Basophils (%) (Auto) 1 % (0-3) Neutrophils # (Auto) 5.3 x10^3/uL (1.8-7.7) Lymphocytes # (Auto) 2.1 x10^3/uL (1.0-4.8) Monocytes # (Auto) 0.8 x10^3/uL (0.0-1.1) Eosinophils # (Auto) 0.3 x10^3/uL (0.0-0.7) Basophils # (Auto) 0.1 x10^3/uL (0.0-0.2) Sodium Level 142 mmol/L (136-145) Potassium Level 3.3 mmol/L (3.5-5.1) Chloride Level 107 mmol/L (98-107) Carbon Dioxide Level 27 mmol/L (21-32) Anion Gap 8 (6-14) Blood Urea Nitrogen 5 mg/dL (7-20) Creatinine 0.8 mg/dL (0.6-1.0) Estimated GFR (Cockcroft-Gault) 86.1 Glucose Level 140 mg/dL (70-99) Calcium Level 8.2 mg/dL (8.5-10.1) Laboratory Tests Test 09/30/19 12:29 09/30/19 17:26 09/30/19 21:01 10/01/19 07:25 Glucose (Fingerstick) 156 mg/dL (70-99) 156 mg/dL (70-99) 166 mg/dL (70-99) White Blood Count 8.6 x10^3/uL (4.0-11.0) Red Blood Count 4.14 x10^6/uL (3.50-5.40) Hemoglobin 11.7 g/dL (12.0-15.5) Hematocrit 35.9 % (36.0-47.0) Mean Corpuscular Volume 87 fL (79-100) Mean Corpuscular Hemoglobin 28 pg (25-35) Mean Corpuscular Hemoglobin Concent 32 g/dL (31-37) Red Cell Distribution Width 14.9 % (11.5-14.5) Platelet Count 243 x10^3/uL (140-400) Neutrophils (%) (Auto) 62 % (31-73) Lymphocytes (%) (Auto) 25 % (24-48) Monocytes (%) (Auto) 9 % (0-9) Eosinophils (%) (Auto) 3 % (0-3) Basophils (%) (Auto) 1 % (0-3) Neutrophils # (Auto) 5.3 x10^3/uL (1.8-7.7) Lymphocytes # (Auto) 2.1 x10^3/uL (1.0-4.8) Monocytes # (Auto) 0.8 x10^3/uL (0.0-1.1) Eosinophils # (Auto) 0.3 x10^3/uL (0.0-0.7) Basophils # (Auto) 0.1 x10^3/uL (0.0-0.2) Sodium Level 142 mmol/L (136-145) Potassium Level 3.3 mmol/L (3.5-5.1) Chloride Level 107 mmol/L (98-107) Carbon Dioxide Level 27 mmol/L (21-32) Anion Gap 8 (6-14) Blood Urea Nitrogen 5 mg/dL (7-20) Creatinine 0.8 mg/dL (0.6-1.0) Estimated GFR (Cockcroft-Gault) 86.1 Glucose Level 140 mg/dL (70-99) Calcium Level 8.2 mg/dL (8.5-10.1) Microbiology 09/29/19 Blood Culture - Final, Complete Medications Current Medications Acetaminophen (Tylenol) 1,000 mg 1X ONCE PO Last administered on 09/29/19at 01:01; Start 09/29/19 at 01:00; Stop 09/29/19 at 01:01; Status DC Piperacillin Sod/ Tazobactam Sod 4.5 gm/Sodium Chloride 100 ml @ 200 mls/hr 1X ONCE IV Last administered on 09/29/19at 01:02; Start 09/29/19 at 01:00; Stop 09/29/19 at 01:29; Status DC Vancomycin HCl (Vanco Per Pharmacy) 1 each PRN DAILY PRN MC SEE COMMENTS Last administered on 09/29/19at 06:34; Start 09/29/19 at 00:45; Stop 09/30/19 at 07:23; Status DC Sodium Chloride 1,000 ml @ 1,000 mls/hr 1X ONCE IV Last administered on 09/29/19at 01:01; Start 09/29/19 at 01:00; Stop 09/29/19 at 01:59; Status DC Furosemide (Lasix) 40 mg 1X ONCE IVP Last administered on 09/29/19at 01:50; Start 09/29/19 at 01:30; Stop 09/29/19 at 01:31; Status DC Vancomycin HCl 1.75 gm/Sodium Chloride 500 ml @ 250 mls/hr 1X ONCE IV Last administered on 09/29/19at 02:22; Start 09/29/19 at 02:00; Stop 09/29/19 at 03:59; Status DC Iohexol (Omnipaque 300 Mg/ml) 75 ml 1X ONCE IV Last administered on 09/29/19at 02:00; Start 09/29/19 at 02:00; Stop 09/29/19 at 02:01; Status DC Sodium Chloride 1,000 ml @ 1,000 mls/hr Q1H IV Last administered on 09/29/19at 19:00; Start 09/29/19 at 02:00; Stop 09/29/19 at 03:21; Status DC Info (CONTRAST GIVEN -- Rx MONITORING) 1 each PRN DAILY PRN MC SEE COMMENTS; Start 09/29/19 at 02:00; Stop 10/01/19 at 01:59; Status DC Norepinephrine Bitartrate 250 ml @ 0 mls/hr CONT PRN IV SEE I/O RECORD Last administered on 09/30/19at 17:17; Start 09/29/19 at 02:45 Ondansetron HCl (Zofran) 4 mg PRN Q8HRS PRN IV NAUSEA/VOMITING 1ST CHOICE; Start 09/29/19 at 03:45; Stop 09/29/19 at 08:24; Status DC Acetaminophen (Tylenol) 650 mg PRN Q4HRS PRN PO FEVER; Start 09/29/19 at 03:45; Stop 09/29/19 at 08:22; Status DC Albuterol/ Ipratropium (Duoneb) 3 ml RTQID NEB Last administered on 09/30/19at 07:41; Start 09/29/19 at 08:00; Stop 09/30/19 at 07:59; Status DC Vancomycin HCl 1 gm/Sodium Chloride 250 ml @ 250 mls/hr Q18H IV Last administered on 09/29/19 20:08; Start 09/29/19 at 20:00; Stop 09/30/19 at 07:21; Status DC Vancomycin HCl (Vancomycin Trough Level) 1 each 1X ONCE MC ; Start 09/30/19 at 13:30; Stop 09/30/19 at 13:31; Status Cancel Aspirin (Children'S Aspirin) 81 mg DAILY PO Last administered on 10/01/19 08:27; Start 09/29/19 at 09:00 Diazepam (Valium) 2 mg BID PO Last administered on 10/01/19 08:26; Start 09/29/19 at 09:00 Folic Acid (Folic Acid) 1 mg DAILY PO Last administered on 10/01/19 08:26; Start 09/29/19 at 09:00 Levothyroxine Sodium (Synthroid) 100 mcg DAILY06 PO Last administered on 10/01/19 05:52; Start 09/29/19 at 09:00 Potassium Chloride (Klor-Con) 10 meq DAILY PO Last administered on 10/01/19 08:40; Start 09/29/19 at 09:00 Tramadol HCl (Ultram) 50 mg BID PO Last administered on 10/01/19 08:26; Start 09/29/19 at 09:00 Cyclobenzaprine HCl (Flexeril) 10 mg TID PO Last administered on 10/01/19 08:26; Start 09/29/19 at 09:00 Cetirizine HCl (ZyrTEC) 10 mg DAILY PO Last administered on 10/01/19 08:27; Start 09/29/19 at 09:00 Mirtazapine (Remeron) 30 mg QHS PO Last administered on 09/30/19 21:05; Start 09/29/19 at 21:00 Oxycodone HCl (Roxicodone) 5 mg QID PO Last administered on 10/01/19 08:27; Start 09/29/19 at 09:00 Thiamine Mononitrate (Vitamin B-1) 100 mg DAILY PO Last administered on 10/01/19 08:26; Start 09/29/19 at 09:00 Temazepam (Restoril) 7.5 mg PRN QHS PRN PO INSOMNIA; Start 09/29/19 at 08:15 Multivitamins (Thera M Plus) 1 tab DAILY PO Last administered on 10/01/19 08:26; Start 09/29/19 at 09:00 Sodium Monofluorophosphate (Fleet Adult) 133 ml 1X ONCE VA Last administered on 09/29/19 09:41; Start 09/29/19 at 08:30; Stop 09/29/19 at 08:33; Status DC Sodium Monofluorophosphate (Fleet Adult) 133 ml DAILY PRN VA CONSTIPATION; Start 09/29/19 at 08:15 Polyethylene Glycol (miraLAX PACKET) 17 gm 1X ONCE PO Last administered on 09/29/19 09:42; Start 09/29/19 at 08:30; Stop 09/29/19 at 08:33; Status DC Polyethylene Glycol (miraLAX PACKET) 17 gm PRN DAILY PRN PO CONSTIPATION; Start 09/29/19 at 08:15 Docusate Sodium (Colace) 100 mg DAILY PO Last administered on 10/01/19 08:26; Start 09/29/19 at 09:00 Ondansetron HCl (Zofran) 4 mg PRN Q6HRS PRN IVP NAUSEA/VOMITING; Start 09/29/19 at 08:15 Acetaminophen (Tylenol) 500 mg PRN Q6HRS PRN PO MILD PAIN / TEMP; Start 09/29/19 at 08:15 Sodium Chloride 1,000 ml @ 100 mls/hr Q10H IV Last administered on 09/30/19 15:00; Start 09/29/19 at 09:00 Oseltamivir Phosphate (Tamiflu) 75 mg BID PO Last administered on 10/01/19 08:26; Start 09/29/19 at 09:00; Stop 10/04/19 at 08:59 Metformin HCl (Glucophage) 500 mg BIDWMEALS PO Last administered on 10/01/19 08:26; Start 10/01/19 at 08:00 Glyburide (Diabeta) 5 mg BIDWMEALS PO Last administered on 10/01/19 08:27; Start 09/29/19 at 09:30 Piperacillin Sod/ Tazobactam Sod 3.375 gm/Sodium Chloride 50 ml @ 100 mls/hr Q6HRS IV Last administered on 10/01/19at 05:52; Start 09/29/19 at 13:30 Lactobacillus Rhamnosus (Culturelle) 1 cap BID PO Last administered on 10/01/19at 08:26; Start 09/29/19 at 21:00 Potassium Chloride (Klor-Con) 20 meq 1X ONCE PO ; Start 09/30/19 at 09:00; Stop 09/30/19 at 09:01; Status DC Potassium Chloride (Klor-Con) 40 meq 1X ONCE PO Last administered on 09/30/19at 08:48; Start 09/30/19 at 07:00; Stop 09/30/19 at 07:01; Status DC Insulin Human Lispro (HumaLOG) 0-5 UNITS TIDACHC SQ Last administered on 09/30/19at 21:03; Start 09/30/19 at 11:30 Dextrose (Dextrose 50%-Water Syringe) 12.5 gm PRN Q15MIN PRN IV SEE COMMENTS; Start 09/30/19 at 09:30 Potassium Chloride/Water 100 ml @ 100 mls/hr Q1H IV Last administered on 09/30/19at 11:34; Start 09/30/19 at 09:30; Stop 09/30/19 at 11:29; Status DC Psyllium Hydrophilic Mucilloid (Metamucil Fiber Packet) 1 pkt DAILY PO ; Start 09/30/19 at 10:15 Albuterol/ Ipratropium (Duoneb) 3 ml RTQID NEB Last administered on 10/01/19at 08:00; Start 09/30/19 at 16:00 Active Scripts Active Reported Diazepam 2 Mg Tablet 2 Mg PO BID Thiamine Hcl 100 Mg Tablet 100 Mg PO DAILY Folic Acid 1 Mg Tablet 1 Tab PO DAILY Oxycodone Hcl 5 Mg Capsule 1 Cap PO QID Potassium Chloride 10 Meq Tablet.er 10 Meq PO DAILY Lasix (Furosemide) 20 Mg Tablet 1 Tab PO DAILY Tramadol Hcl 50 Mg Tablet 1 Tab PO BID Synthroid (Levothyroxine Sodium) 100 Mcg Tablet 1 Tab PO DAILY Melatonin 5 Mg Tablet 5 Mg PO Baclofen 10 Mg Tablet 1 Tab PO TID Multi Vitamin Daily (Multivitamin) 1 Each Tablet 1 Each PO Aspirin 81 Mg Tab.chew 1 Tab PO DAILY Loratadine 10 Mg Tablet 1 Tab PO DAILY Mirtazapine 30 Mg Tablet 1 Tab PO QHS Vitals/I & O Vital Sign - Last 24 Hours 11/25/09/30/19 09/30/19 09/30/19 08:49 09:00 09:30 09:49 Pulse 96 94 Resp 16 16 B/P (MAP) 117/87 (97) 105/82 (90) Pulse Ox 94 94 O2 Delivery Nasal Cannula Nasal Cannula Nasal Cannula Nasal Cannula O2 Flow Rate 3.0 3.0 3.0 3.0 09/30/19 09/30/19 09/30/19 09/30/19 10:00 10:30 11:00 11:09 Pulse 96 94 92 B/P (MAP) 93/71 (78) 90/62 (71) 89/67 (74) Pulse Ox 94 94 94 98 O2 Delivery Nasal Cannula Nasal Cannula Nasal Cannula Nasal Cannula O2 Flow Rate 3.0 3.0 3.0 3.0 09/30/19 09/30/19 09/30/19 09/30/19 12:00 12:00 13:00 14:00 Temp 98.4 98.4 Pulse 96 104 94 B/P (MAP) 90/68 (75) 111/88 (96) 93/60 (71) Pulse Ox 94 94 94 O2 Delivery Nasal Cannula Nasal Cannula Nasal Cannula Nasal Cannula O2 Flow Rate 3.0 3.0 3.0 3.0 09/30/19 09/30/19 09/30/19 09/30/19 14:30 15:00 15:27 15:30 Pulse 86 88 88 Resp 16 18 16 B/P (MAP) 106/79 (88) 97/73 (81) 106/74 (85) Pulse Ox 94 94 94 94 O2 Delivery Nasal Cannula Nasal Cannula Nasal Cannula Nasal Cannula O2 Flow Rate 3.0 3.0 2.0 3.0 09/30/19 09/30/19 09/30/19 09/30/19 16:00 16:00 16:30 17:00 Temp 98.2 98.2 Pulse 90 92 Resp 16 16 16 B/P (MAP) 113/77 (89) 72/52 (59) Pulse Ox 94 94 O2 Delivery Nasal Cannula Nasal Cannula Nasal Cannula O2 Flow Rate 3.0 3.0 3.0 09/30/19 09/30/19 09/30/19 09/30/19 17:00 17:18 18:18 19:00 Pulse 92 96 Resp 16 16 16 20 B/P (MAP) 95/72 (80) 158/100 (119) Pulse Ox 94 94 O2 Delivery Nasal Cannula Nasal Cannula Nasal Cannula Nasal Cannula O2 Flow Rate 3.0 3.0 3.0 09/30/19 09/30/19 09/30/19 09/30/19 19:44 20:00 20:00 21:00 Temp 98.6 98.6 Pulse 96 96 Resp 20 20 B/P (MAP) 114/76 (89) 116/86 (96) Pulse Ox 96 94 94 O2 Delivery Nasal Cannula Nasal Cannula Nasal Cannula Nasal Cannula O2 Flow Rate 2.0 3.0 3.0 3.0 09/30/19 09/30/19 09/30/19 09/30/19 21:05 21:05 22:00 23:00 Pulse 100 98 Resp 20 20 B/P (MAP) 98/60 (73) 100/58 (72) Pulse Ox 94 94 94 96 O2 Delivery Nasal Cannula Nasal Cannula Nasal Cannula Nasal Cannula O2 Flow Rate 3.0 3.0 3.0 3.0 09/30/19 09/30/19 09/30/19 09/30/19 23:28 23:28 23:58 23:59 Pulse 88 Resp 18 B/P (MAP) 101/62 (75) Pulse Ox 94 94 98 O2 Delivery Nasal Cannula Nasal Cannula Nasal Cannula Nasal Cannula O2 Flow Rate 3.0 3.0 3.0 3.0 10/01/19 10/01/19 10/01/19 10/01/19 01:00 02:00 03:00 04:00 Temp 99.8 99.8 Pulse 86 85 94 Resp 22 18 20 B/P (MAP) 108/68 (81) 95/64 (74) 105/68 (80) Pulse Ox 98 99 99 O2 Delivery Nasal Cannula Nasal Cannula Nasal Cannula Nasal Cannula O2 Flow Rate 3.0 3.0 3.0 3.0 10/01/19 10/01/19 10/01/19 10/01/19 04:00 05:07 06:00 07:00 Temp 98.6 98.6 Pulse 92 94 88 90 Resp 18 20 20 20 B/P (MAP) 95/52 (66) 104/72 (83) 106/68 (81) 132/92 (105) Pulse Ox 99 99 99 99 O2 Delivery Nasal Cannula Nasal Cannula Nasal Cannula Nasal Cannula O2 Flow Rate 3.0 3.0 3.0 3.0 10/01/19 10/01/19 10/01/19 10/01/19 08:00 08:00 08:16 08:26 Temp 98.6 98.6 Pulse 95 Resp 18 B/P (MAP) 137/86 (103) Pulse Ox 100 96 96 O2 Delivery Nasal Cannula Nasal Cannula Nasal Cannula Nasal Cannula O2 Flow Rate 3.0 3.0 2.0 2.0 10/01/19 08:27 Pulse Ox 96 O2 Delivery Nasal Cannula O2 Flow Rate 2.0 Intake and Output 09/30/19 09/30/19 10/01/19 15:00 23:00 07:00 Intake Total 550 ml 1962 ml 2221 ml Output Total 600 ml 725 ml 625 ml Balance -50 ml 1237 ml 1596 ml NARAYAN LINDSAY MD Oct 01, 2019 08:45
[2019-10-01] MEDS: PSYLLIUM HUSK (SUGAR FREE) 1 PKT PACKET PO SCH (09:00)
[2019-10-01] MEDS: POTASSIUM CHLORIDE 10MEQ 100 ML IV SCH ×2 (09:18→12:43)
[2019-10-01] MEDS ORDERED: POTASSIUM CHLORIDE 20 MEQ TABLET.ER. PO ONE (10:00)
[2019-10-01] MEDS ORDERED: MAGNESIUM SULFATE 2GM 50 ML IV ONE (11:00)
--- NOTE | 2019-10-01 15:19 | NUR ---
SS following up with discharge planning. SS phoned and faxed updated clinical to [facility], ; fax [phone]. SS will continue to follow for discharge planning.
[2019-10-01 17:33] LABS: CALCIUM 8.4 mg/dL (8.5-10.1); CREATININE 0.7 mg/dL (0.6-1.0); GFR 100.4; POTASSIUM 3.7 mmol/L (3.5-5.1)
[2019-10-01] MEDS: MIRTAZAPINE 15 MG TABLET PO SCH (20:41)
[2019-10-02] VITALS (11 sets, daily range): BP systolic 91–138; BP diastolic 58–96
[2019-10-02] MEDS: PIPERACILLIN/TAZOBACTAM 3.375 GM in IV NORMAL SALINE 50ML 50 ML IV SCH (05:38)
[2019-10-02] MEDS: LEVOTHYROXINE 100 MCG TABLET PO SCH (05:39)
[2019-10-02 05:57] LABS: BASO # 0.1 x10^3/uL (0.0-0.2); BASO % 1 % (0-3); EOS # 0.2 x10^3/uL (0.0-0.7); EOS % 2 % (0-3); HEMATOCRIT 35.2 % (36.0-47.0); HEMOGLOBIN 11.4 g/dL (12.0-15.5); LYMPH # 1.5 x10^3/uL (1.0-4.8); LYMPH % 19 % (24-48); MEAN CORPUSCULAR HEMOGLOBIN 28 pg (25-35); MEAN CORPUSCULAR HGB CONC 33 g/dL (31-37); MEAN CORPUSCULAR VOLUME 87 fL (79-100); MONO # 0.5 x10^3/uL (0.0-1.1); MONO % 7 % (0-9); NEUT # 5.8 x10^3/uL (1.8-7.7); NEUT % 72 % (31-73); PLATELET COUNT 243 x10^3/uL (140-400); RED BLOOD COUNT 4.03 x10^6/uL (3.50-5.40); RED CELL DISTRIBUTION WIDTH 14.9 % (11.5-14.5); WHITE BLOOD COUNT 8.1 x10^3/uL (4.0-11.0)
[2019-10-02 06:15] LABS: ALBUMIN 2.5 g/dL (3.4-5.0); ALBUMIN/GLOBULIN RATIO 0.5 (1.0-1.7); CALCIUM 8.7 mg/dL (8.5-10.1); CREATININE 0.7 mg/dL (0.6-1.0); GFR 100.4; POTASSIUM 3.5 mmol/L (3.5-5.1); TOTAL BILIRUBIN 0.5 mg/dL (0.2-1.0); TOTAL PROTEIN 7.4 g/dL (6.4-8.2)
[2019-10-02] MEDS: IV NORMAL SALINE 1000ML BAG 1,000 ML IV SCH (06:26)
[2019-10-02] MEDS: INSULIN LISPRO 300 UNITS/3 ML VIAL. SQ SCH (07:30)
--- NOTE | 2019-10-02 07:51 | PDOC ---
Infectious Disease Note Subjective Subjective pt is feeling better ROS ROS no n/v/d/sob Vital Sign Vital Signs Vital Signs Date Time Temp Pulse Resp B/P (MAP) Pulse Ox O2 Delivery O2 Flow Rate FiO2 10/02/19 06:00 101 18 118/86 (97) 96 Nasal Cannula 2.0 10/02/19 05:00 Physical Exam PHYSICAL EXAM GENERAL: The patient is propped up in bed, alert, finishing lunch. HEENT: Pupils equally round. Oral cavity pink and moist. No lesions. NECK: Supple. LUNGS: Clear to auscultation. CARDIAC: S1, S2. ABDOMEN: Obese, soft, nontender with bowel sounds present. GENITOURINARY: Awake, in place. EXTREMITIES: No gross edema or cyanosis. SKIN: Warm to touch. No signs of rash. left leg cellulitis NEUROLOGIC: Alert, answering questions appropriately. RIJ (09-29) without signs of any complications. Labs Lab Laboratory Tests Test 10/01/19 17:06 10/01/19 20:31 10/02/19 05:40 Sodium Level 140 mmol/L (136-145) 140 mmol/L (136-145) Potassium Level 3.7 mmol/L (3.5-5.1) 3.5 mmol/L (3.5-5.1) Chloride Level 106 mmol/L (98-107) 104 mmol/L (98-107) Carbon Dioxide Level 28 mmol/L (21-32) 27 mmol/L (21-32) Anion Gap 6 (6-14) 9 (6-14) Blood Urea Nitrogen 4 mg/dL (7-20) 4 mg/dL (7-20) Creatinine 0.7 mg/dL (0.6-1.0) 0.7 mg/dL (0.6-1.0) Estimated GFR (Cockcroft-Gault) 100.4 100.4 Glucose Level 99 mg/dL (70-99) 111 mg/dL (70-99) Calcium Level 8.4 mg/dL (8.5-10.1) 8.7 mg/dL (8.5-10.1) Glucose (Fingerstick) 101 mg/dL (70-99) White Blood Count 8.1 x10^3/uL (4.0-11.0) Red Blood Count 4.03 x10^6/uL (3.50-5.40) Hemoglobin 11.4 g/dL (12.0-15.5) Hematocrit 35.2 % (36.0-47.0) Mean Corpuscular Volume 87 fL (79-100) Mean Corpuscular Hemoglobin 28 pg (25-35) Mean Corpuscular Hemoglobin Concent 33 g/dL (31-37) Red Cell Distribution Width 14.9 % (11.5-14.5) Platelet Count 243 x10^3/uL (140-400) Neutrophils (%) (Auto) 72 % (31-73) Lymphocytes (%) (Auto) 19 % (24-48) Monocytes (%) (Auto) 7 % (0-9) Eosinophils (%) (Auto) 2 % (0-3) Basophils (%) (Auto) 1 % (0-3) Neutrophils # (Auto) 5.8 x10^3/uL (1.8-7.7) Lymphocytes # (Auto) 1.5 x10^3/uL (1.0-4.8) Monocytes # (Auto) 0.5 x10^3/uL (0.0-1.1) Eosinophils # (Auto) 0.2 x10^3/uL (0.0-0.7) Basophils # (Auto) 0.1 x10^3/uL (0.0-0.2) BUN/Creatinine Ratio 6 (6-20) Total Bilirubin 0.5 mg/dL (0.2-1.0) Aspartate Amino Transf (AST/SGOT) 18 U/L (15-37) Alanine Aminotransferase (ALT/SGPT) 17 U/L (14-59) Alkaline Phosphatase 74 U/L (46-116) Total Protein 7.4 g/dL (6.4-8.2) Albumin 2.5 g/dL (3.4-5.0) Albumin/Globulin Ratio 0.5 (1.0-1.7) Micro BLOOD CULTURE Final GRAM POSITIVE COCCI IN CLUSTERS, SUGGESTIVE OF STAPH, IN 1 OF 3 BOTTLES, TWO SETS DRAWN. CALLED TO CHICHO CHEATHAM RN IN ICU AT 10:45 ON 09/30/19 DW MT SENT TO [facility] FOR FURTHER WORKUP. Objective Assessment 1. Influenza B 2. Fever. 3. Leukocytosis. 4. Hypotension, improving 5. Constipation. 6. History of cerebrovascular accident. 7. Left leg cellulitis with sepsis 8. BC + 1/3 G + cocci, likely contaminant Plan Plan of Care Continue Tamiflu Change Zosyn,, to po augmentin F/u cultures Monitor labs and renal function closely NICHOLAS ARANGO MD Oct 02, 2019 07:51
[2019-10-02] MEDS: OSELTAMIVIR 75 MG CAPSULE PO SCH (07:55)
[2019-10-02] MEDS: THIAMINE 100 MG TABLET. PO SCH (07:55)
[2019-10-02] MEDS: ASPIRIN CHEWABLE 81 MG TABLET. PO SCH (07:55)
[2019-10-02] MEDS: MULTIVITAMIN with MINERAL TABLET. PO SCH (07:55)
[2019-10-02] MEDS: diazePAM 2 MG TABLET PO SCH (07:55)
[2019-10-02] MEDS: CYCLOBENZAPRINE 10 MG TABLET. PO SCH (07:55)
[2019-10-02] MEDS: LACTOBACILLUS RHAMNOSUS GG 1 CAPSULE. PO SCH (07:55)
[2019-10-02] MEDS: metFORMIN 500 MG TABLET PO SCH (07:56)
[2019-10-02] MEDS: oxyCODONE IR 5 MG TABLET PO SCH (07:56)
[2019-10-02] MEDS: FOLIC ACID 1 MG TABLET. PO SCH (07:56)
[2019-10-02] MEDS: traMADol 50 MG TABLET PO SCH (07:56)
[2019-10-02] MEDS: PSYLLIUM HUSK (SUGAR FREE) 1 PKT PACKET PO SCH ×2 (07:57→09:00)
[2019-10-02] MEDS: CETIRIZINE HCL 10 MG TABLET. PO SCH (07:57)
[2019-10-02] MEDS: POTASSIUM CHLORIDE 10 MEQ TABLET.ER. PO SCH (07:57)
[2019-10-02] MEDS: DOCUSATE SODIUM 100 MG CAPSULE. PO SCH (07:57)
[2019-10-02] MEDS: glyBURIDE 5 MG TABLET PO SCH (08:32)
[2019-10-02] MEDS: IPRATRPIUM/ALBUTEROL 0.5/2.5MG 3 ML NEBU. NEB SCH (08:48)
--- NOTE | 2019-10-02 08:57 | PDOC ---
PROGRESS NOTES Chief Complaint Chief Complaint Influenza B Septic shock Constipation. History of cerebrovascular accident. 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 Positive flu B, cellulitis, Some haziness CXR. Admitted to ICU on levophed. Seen by ID in consultation. 10/01/19: K 3.3 this morning. She is breathing somewhat better. Still on levophed. Had a BM. Orta still in place. She is requesting to work with PT. Denies CP. Feeling less short of breath. Off levophed today, feeling much better. On oral antibiotics Plan: Some mobility may help. Unclear what her baseline BP is, but she notes she is normally hypertensive. Ready for d/c on augmentin 6 days and tamiflu 6 days, needs BMP in 5 days Vitals Vitals Vital Signs Date Time Temp Pulse Resp B/P (MAP) Pulse Ox O2 Delivery O2 Flow Rate FiO2 10/02/19 08:48 95 Nasal Cannula 2.0 10/02/19 08:00 97.6 103 20 127/96 (106) 97.6 Physical Exam Physical Exam GENERAL: The patient is propped up in bed, alert, finishing lunch. HEENT: Pupils equally round. Oral cavity pink and moist. No lesions. NECK: Supple. LUNGS: Clear to auscultation. CARDIAC: S1, S2. ABDOMEN: Obese, soft, nontender with bowel sounds present. GENITOURINARY: Awake, in place. EXTREMITIES: No gross edema or cyanosis. SKIN: Warm to touch. No signs of rash. left leg cellulitis NEUROLOGIC: Alert, answering questions appropriately. RIJ (11-24) without signs of any complications. General: Alert, Oriented X3, Cooperative, No acute distress Lungs: Clear Abdomen: Normal bowel sounds, Soft, No tenderness, No hepatosplenomegaly, No masses Extremities: No clubbing, No cyanosis, Other (left sided hemiplegia) Skin: No rashes, No breakdown, No significant lesion Labs LABS Laboratory Tests Test 10/01/19 17:06 10/01/19 20:31 10/02/19 05:40 Sodium Level 140 mmol/L (136-145) 140 mmol/L (136-145) Potassium Level 3.7 mmol/L (3.5-5.1) 3.5 mmol/L (3.5-5.1) Chloride Level 106 mmol/L (98-107) 104 mmol/L (98-107) Carbon Dioxide Level 28 mmol/L (21-32) 27 mmol/L (21-32) Anion Gap 6 (6-14) 9 (6-14) Blood Urea Nitrogen 4 mg/dL (7-20) 4 mg/dL (7-20) Creatinine 0.7 mg/dL (0.6-1.0) 0.7 mg/dL (0.6-1.0) Estimated GFR (Cockcroft-Gault) 100.4 100.4 Glucose Level 99 mg/dL (70-99) 111 mg/dL (70-99) Calcium Level 8.4 mg/dL (8.5-10.1) 8.7 mg/dL (8.5-10.1) Glucose (Fingerstick) 101 mg/dL (70-99) White Blood Count 8.1 x10^3/uL (4.0-11.0) Red Blood Count 4.03 x10^6/uL (3.50-5.40) Hemoglobin 11.4 g/dL (12.0-15.5) Hematocrit 35.2 % (36.0-47.0) Mean Corpuscular Volume 87 fL (79-100) Mean Corpuscular Hemoglobin 28 pg (25-35) Mean Corpuscular Hemoglobin Concent 33 g/dL (31-37) Red Cell Distribution Width 14.9 % (11.5-14.5) Platelet Count 243 x10^3/uL (140-400) Neutrophils (%) (Auto) 72 % (31-73) Lymphocytes (%) (Auto) 19 % (24-48) Monocytes (%) (Auto) 7 % (0-9) Eosinophils (%) (Auto) 2 % (0-3) Basophils (%) (Auto) 1 % (0-3) Neutrophils # (Auto) 5.8 x10^3/uL (1.8-7.7) Lymphocytes # (Auto) 1.5 x10^3/uL (1.0-4.8) Monocytes # (Auto) 0.5 x10^3/uL (0.0-1.1) Eosinophils # (Auto) 0.2 x10^3/uL (0.0-0.7) Basophils # (Auto) 0.1 x10^3/uL (0.0-0.2) BUN/Creatinine Ratio 6 (6-20) Total Bilirubin 0.5 mg/dL (0.2-1.0) Aspartate Amino Transf (AST/SGOT) 18 U/L (15-37) Alanine Aminotransferase (ALT/SGPT) 17 U/L (14-59) Alkaline Phosphatase 74 U/L (46-116) Total Protein 7.4 g/dL (6.4-8.2) Albumin 2.5 g/dL (3.4-5.0) Albumin/Globulin Ratio 0.5 (1.0-1.7) Assessment and Plan Assessmemt and Plan Problems Medical Problems: (1) Fecal impaction Status: Acute (2) Influenza B Status: Acute (3) Sepsis Status: Acute Comment Review of Relevant I have reviewed the following items nora (where applicable) has been applied. Labs Laboratory Tests Test 09/30/19 12:29 09/30/19 17:26 09/30/19 21:01 10/01/19 07:25 Glucose (Fingerstick) 156 mg/dL (70-99) 156 mg/dL (70-99) 166 mg/dL (70-99) White Blood Count 8.6 x10^3/uL (4.0-11.0) Red Blood Count 4.14 x10^6/uL (3.50-5.40) Hemoglobin 11.7 g/dL (12.0-15.5) Hematocrit 35.9 % (36.0-47.0) Mean Corpuscular Volume 87 fL (79-100) Mean Corpuscular Hemoglobin 28 pg (25-35) Mean Corpuscular Hemoglobin Concent 32 g/dL (31-37) Red Cell Distribution Width 14.9 % (11.5-14.5) Platelet Count 243 x10^3/uL (140-400) Neutrophils (%) (Auto) 62 % (31-73) Lymphocytes (%) (Auto) 25 % (24-48) Monocytes (%) (Auto) 9 % (0-9) Eosinophils (%) (Auto) 3 % (0-3) Basophils (%) (Auto) 1 % (0-3) Neutrophils # (Auto) 5.3 x10^3/uL (1.8-7.7) Lymphocytes # (Auto) 2.1 x10^3/uL (1.0-4.8) Monocytes # (Auto) 0.8 x10^3/uL (0.0-1.1) Eosinophils # (Auto) 0.3 x10^3/uL (0.0-0.7) Basophils # (Auto) 0.1 x10^3/uL (0.0-0.2) Sodium Level 142 mmol/L (136-145) Potassium Level 3.3 mmol/L (3.5-5.1) Chloride Level 107 mmol/L (98-107) Carbon Dioxide Level 27 mmol/L (21-32) Anion Gap 8 (6-14) Blood Urea Nitrogen 5 mg/dL (7-20) Creatinine 0.8 mg/dL (0.6-1.0) Estimated GFR (Cockcroft-Gault) 86.1 Glucose Level 140 mg/dL (70-99) Calcium Level 8.2 mg/dL (8.5-10.1) Magnesium Level 1.8 mg/dL (1.8-2.4) Test 10/01/19 17:06 10/01/19 20:31 10/02/19 05:40 Sodium Level 140 mmol/L (136-145) 140 mmol/L (136-145) Potassium Level 3.7 mmol/L (3.5-5.1) 3.5 mmol/L (3.5-5.1) Chloride Level 106 mmol/L (98-107) 104 mmol/L (98-107) Carbon Dioxide Level 28 mmol/L (21-32) 27 mmol/L (21-32) Anion Gap 6 (6-14) 9 (6-14) Blood Urea Nitrogen 4 mg/dL (7-20) 4 mg/dL (7-20) Creatinine 0.7 mg/dL (0.6-1.0) 0.7 mg/dL (0.6-1.0) Estimated GFR (Cockcroft-Gault) 100.4 100.4 Glucose Level 99 mg/dL (70-99) 111 mg/dL (70-99) Calcium Level 8.4 mg/dL (8.5-10.1) 8.7 mg/dL (8.5-10.1) Glucose (Fingerstick) 101 mg/dL (70-99) White Blood Count 8.1 x10^3/uL (4.0-11.0) Red Blood Count 4.03 x10^6/uL (3.50-5.40) Hemoglobin 11.4 g/dL (12.0-15.5) Hematocrit 35.2 % (36.0-47.0) Mean Corpuscular Volume 87 fL (79-100) Mean Corpuscular Hemoglobin 28 pg (25-35) Mean Corpuscular Hemoglobin Concent 33 g/dL (31-37) Red Cell Distribution Width 14.9 % (11.5-14.5) Platelet Count 243 x10^3/uL (140-400) Neutrophils (%) (Auto) 72 % (31-73) Lymphocytes (%) (Auto) 19 % (24-48) Monocytes (%) (Auto) 7 % (0-9) Eosinophils (%) (Auto) 2 % (0-3) Basophils (%) (Auto) 1 % (0-3) Neutrophils # (Auto) 5.8 x10^3/uL (1.8-7.7) Lymphocytes # (Auto) 1.5 x10^3/uL (1.0-4.8) Monocytes # (Auto) 0.5 x10^3/uL (0.0-1.1) Eosinophils # (Auto) 0.2 x10^3/uL (0.0-0.7) Basophils # (Auto) 0.1 x10^3/uL (0.0-0.2) BUN/Creatinine Ratio 6 (6-20) Total Bilirubin 0.5 mg/dL (0.2-1.0) Aspartate Amino Transf (AST/SGOT) 18 U/L (15-37) Alanine Aminotransferase (ALT/SGPT) 17 U/L (14-59) Alkaline Phosphatase 74 U/L (46-116) Total Protein 7.4 g/dL (6.4-8.2) Albumin 2.5 g/dL (3.4-5.0) Albumin/Globulin Ratio 0.5 (1.0-1.7) Laboratory Tests Test 10/01/19 17:06 10/01/19 20:31 10/02/19 05:40 Sodium Level 140 mmol/L (136-145) 140 mmol/L (136-145) Potassium Level 3.7 mmol/L (3.5-5.1) 3.5 mmol/L (3.5-5.1) Chloride Level 106 mmol/L (98-107) 104 mmol/L (98-107) Carbon Dioxide Level 28 mmol/L (21-32) 27 mmol/L (21-32) Anion Gap 6 (6-14) 9 (6-14) Blood Urea Nitrogen 4 mg/dL (7-20) 4 mg/dL (7-20) Creatinine 0.7 mg/dL (0.6-1.0) 0.7 mg/dL (0.6-1.0) Estimated GFR (Cockcroft-Gault) 100.4 100.4 Glucose Level 99 mg/dL (70-99) 111 mg/dL (70-99) Calcium Level 8.4 mg/dL (8.5-10.1) 8.7 mg/dL (8.5-10.1) Glucose (Fingerstick) 101 mg/dL (70-99) White Blood Count 8.1 x10^3/uL (4.0-11.0) Red Blood Count 4.03 x10^6/uL (3.50-5.40) Hemoglobin 11.4 g/dL (12.0-15.5) Hematocrit 35.2 % (36.0-47.0) Mean Corpuscular Volume 87 fL (79-100) Mean Corpuscular Hemoglobin 28 pg (25-35) Mean Corpuscular Hemoglobin Concent 33 g/dL (31-37) Red Cell Distribution Width 14.9 % (11.5-14.5) Platelet Count 243 x10^3/uL (140-400) Neutrophils (%) (Auto) 72 % (31-73) Lymphocytes (%) (Auto) 19 % (24-48) Monocytes (%) (Auto) 7 % (0-9) Eosinophils (%) (Auto) 2 % (0-3) Basophils (%) (Auto) 1 % (0-3) Neutrophils # (Auto) 5.8 x10^3/uL (1.8-7.7) Lymphocytes # (Auto) 1.5 x10^3/uL (1.0-4.8) Monocytes # (Auto) 0.5 x10^3/uL (0.0-1.1) Eosinophils # (Auto) 0.2 x10^3/uL (0.0-0.7) Basophils # (Auto) 0.1 x10^3/uL (0.0-0.2) BUN/Creatinine Ratio 6 (6-20) Total Bilirubin 0.5 mg/dL (0.2-1.0) Aspartate Amino Transf (AST/SGOT) 18 U/L (15-37) Alanine Aminotransferase (ALT/SGPT) 17 U/L (14-59) Alkaline Phosphatase 74 U/L (46-116) Total Protein 7.4 g/dL (6.4-8.2) Albumin 2.5 g/dL (3.4-5.0) Albumin/Globulin Ratio 0.5 (1.0-1.7) Microbiology 09/29/19 Urine Culture - Final, Complete 09/29/19 Urine Culture Result 1 (DESIRAE) - Final, Complete 09/29/19 Blood Culture - Final, Complete Medications Current Medications Acetaminophen (Tylenol) 1,000 mg 1X ONCE PO Last administered on 09/29/19at 01:01; Start 09/29/19 at 01:00; Stop 09/29/19 at 01:01; Status DC Piperacillin Sod/ Tazobactam Sod 4.5 gm/Sodium Chloride 100 ml @ 200 mls/hr 1X ONCE IV Last administered on 09/29/19at 01:02; Start 09/29/19 at 01:00; Stop 09/29/19 at 01:29; Status DC Vancomycin HCl (Vanco Per Pharmacy) 1 each PRN DAILY PRN MC SEE COMMENTS Last administered on 09/29/19at 06:34; Start 09/29/19 at 00:45; Stop 09/30/19 at 07:23; Status DC Sodium Chloride 1,000 ml @ 1,000 mls/hr 1X ONCE IV Last administered on 09/29/19at 01:01; Start 09/29/19 at 01:00; Stop 09/29/19 at 01:59; Status DC Furosemide (Lasix) 40 mg 1X ONCE IVP Last administered on 09/29/19at 01:50; Start 09/29/19 at 01:30; Stop 09/29/19 at 01:31; Status DC Vancomycin HCl 1.75 gm/Sodium Chloride 500 ml @ 250 mls/hr 1X ONCE IV Last administered on 09/29/19at 02:22; Start 09/29/19 at 02:00; Stop 09/29/19 at 03:59; Status DC Iohexol (Omnipaque 300 Mg/ml) 75 ml 1X ONCE IV Last administered on 09/29/19at 02:00; Start 09/29/19 at 02:00; Stop 09/29/19 at 02:01; Status DC Sodium Chloride 1,000 ml @ 1,000 mls/hr Q1H IV Last administered on 09/29/19at 19:00; Start 09/29/19 at 02:00; Stop 09/29/19 at 03:21; Status DC Info (CONTRAST GIVEN -- Rx MONITORING) 1 each PRN DAILY PRN MC SEE COMMENTS; Start 09/29/19 at 02:00; Stop 10/01/19 at 01:59; Status DC Norepinephrine Bitartrate 250 ml @ 0 mls/hr CONT PRN IV SEE I/O RECORD Last administered on 09/30/19at 17:17; Start 09/29/19 at 02:45 Ondansetron HCl (Zofran) 4 mg PRN Q8HRS PRN IV NAUSEA/VOMITING 1ST CHOICE; Start 09/29/19 at 03:45; Stop 09/29/19 at 08:24; Status DC Acetaminophen (Tylenol) 650 mg PRN Q4HRS PRN PO FEVER; Start 09/29/19 at 03:45; Stop 09/29/19 at 08:22; Status DC Albuterol/ Ipratropium (Duoneb) 3 ml RTQID NEB Last administered on 09/30/19at 07:41; Start 09/29/19 at 08:00; Stop 09/30/19 at 07:59; Status DC Vancomycin HCl 1 gm/Sodium Chloride 250 ml @ 250 mls/hr Q18H IV Last administered on 09/29/19 20:08; Start 09/29/19 at 20:00; Stop 09/30/19 at 07:21; Status DC Vancomycin HCl (Vancomycin Trough Level) 1 each 1X ONCE MC ; Start 09/30/19 at 13:30; Stop 09/30/19 at 13:31; Status Cancel Aspirin (Children'S Aspirin) 81 mg DAILY PO Last administered on 10/02/19 07:55; Start 09/29/19 at 09:00 Diazepam (Valium) 2 mg BID PO Last administered on 10/02/19 07:55; Start 09/29/19 at 09:00 Folic Acid (Folic Acid) 1 mg DAILY PO Last administered on 10/02/19 07:56; Start 09/29/19 at 09:00 Levothyroxine Sodium (Synthroid) 100 mcg DAILY06 PO Last administered on 10/02/19 05:39; Start 09/29/19 at 09:00 Potassium Chloride (Klor-Con) 10 meq DAILY PO Last administered on 10/02/19 07:57; Start 09/29/19 at 09:00 Tramadol HCl (Ultram) 50 mg BID PO Last administered on 10/02/19 07:56; Start 09/29/19 at 09:00 Cyclobenzaprine HCl (Flexeril) 10 mg TID PO Last administered on 10/02/19 07:55; Start 09/29/19 at 09:00 Cetirizine HCl (ZyrTEC) 10 mg DAILY PO Last administered on 10/02/19 07:57; Start 09/29/19 at 09:00 Mirtazapine (Remeron) 30 mg QHS PO Last administered on 10/01/19 20:41; Start 09/29/19 at 21:00 Oxycodone HCl (Roxicodone) 5 mg QID PO Last administered on 10/02/19 07:56; Start 09/29/19 at 09:00 Thiamine Mononitrate (Vitamin B-1) 100 mg DAILY PO Last administered on 10/02/19 07:55; Start 09/29/19 at 09:00 Temazepam (Restoril) 7.5 mg PRN QHS PRN PO INSOMNIA; Start 09/29/19 at 08:15 Multivitamins (Thera M Plus) 1 tab DAILY PO Last administered on 10/02/19 07:55; Start 09/29/19 at 09:00 Sodium Monofluorophosphate (Fleet Adult) 133 ml 1X ONCE NM Last administered on 09/29/19 09:41; Start 09/29/19 at 08:30; Stop 09/29/19 at 08:33; Status DC Sodium Monofluorophosphate (Fleet Adult) 133 ml DAILY PRN NM CONSTIPATION; Start 09/29/19 at 08:15 Polyethylene Glycol (miraLAX PACKET) 17 gm 1X ONCE PO Last administered on 09/29/19 09:42; Start 09/29/19 at 08:30; Stop 09/29/19 at 08:33; Status DC Polyethylene Glycol (miraLAX PACKET) 17 gm PRN DAILY PRN PO CONSTIPATION; Start 09/29/19 at 08:15 Docusate Sodium (Colace) 100 mg DAILY PO Last administered on 10/02/19 07:57; Start 09/29/19 at 09:00 Ondansetron HCl (Zofran) 4 mg PRN Q6HRS PRN IVP NAUSEA/VOMITING Last administered on 10/01/19 12:43; Start 09/29/19 at 08:15 Acetaminophen (Tylenol) 500 mg PRN Q6HRS PRN PO MILD PAIN / TEMP; Start 09/29/19 at 08:15 Sodium Chloride 1,000 ml @ 100 mls/hr Q10H IV Last administered on 10/02/19 06:26; Start 09/29/19 at 09:00 Oseltamivir Phosphate (Tamiflu) 75 mg BID PO Last administered on 10/02/19 07:55; Start 09/29/19 at 09:00; Stop 10/04/19 at 08:59 Metformin HCl (Glucophage) 500 mg BIDWMEALS PO Last administered on 10/02/19 07:56; Start 10/01/19 at 08:00 Glyburide (Diabeta) 5 mg BIDWMEALS PO Last administered on 10/02/19 08:32; Start 09/29/19 at 09:30 Piperacillin Sod/ Tazobactam Sod 3.375 gm/Sodium Chloride 50 ml @ 100 mls/hr Q6HRS IV Last administered on 11/27/19at 05:38; Start 09/29/19 at 13:30; Stop 10/02/19 at 07:52; Status DC Lactobacillus Rhamnosus (Culturelle) 1 cap BID PO Last administered on 10/02/19at 07:55; Start 09/29/19 at 21:00 Potassium Chloride (Klor-Con) 20 meq 1X ONCE PO ; Start 09/30/19 at 09:00; Stop 09/30/19 at 09:01; Status DC Potassium Chloride (Klor-Con) 40 meq 1X ONCE PO Last administered on 09/30/19at 08:48; Start 09/30/19 at 07:00; Stop 09/30/19 at 07:01; Status DC Insulin Human Lispro (HumaLOG) 0-5 UNITS TIDACHC SQ Last administered on 09/30/19at 21:03; Start 09/30/19 at 11:30 Dextrose (Dextrose 50%-Water Syringe) 12.5 gm PRN Q15MIN PRN IV SEE COMMENTS; Start 09/30/19 at 09:30 Potassium Chloride/Water 100 ml @ 100 mls/hr Q1H IV Last administered on 09/07 03/24at 11:34; Start 09/30/19 at 09:30; Stop 09/30/19 at 11:29; Status DC Psyllium Hydrophilic Mucilloid (Metamucil Fiber Packet) 1 pkt DAILY PO Last administered on 10/01/19at 09:00; Start 09/30/19 at 10:15 Albuterol/ Ipratropium (Duoneb) 3 ml RTQID NEB Last administered on 10/02/19at 08:48; Start 09/30/19 at 16:00 Potassium Chloride/Water 100 ml @ 100 mls/hr Q1H IV Last administered on 10/01/19at 12:43; Start 10/01/19 at 10:00; Stop 10/01/19 at 11:59; Status DC Potassium Chloride (Klor-Con) 40 meq 1X ONCE PO Last administered on 10/01/19at 09:29; Start 10/01/19 at 10:00; Stop 10/01/19 at 10:01; Status DC Magnesium Sulfate 50 ml @ 25 mls/hr 1X ONCE IV Last administered on 10/01/19at 12:36; Start 10/01/19 at 11:00; Stop 10/01/19 at 12:59; Status DC Amoxicillin/ Clavulanate Potassium (Augmentin 875/ 125mg) 1 tab BID PO ; Start 10/02/19 at 09:00 Active Scripts Active Reported Diazepam 2 Mg Tablet 2 Mg PO BID Thiamine Hcl 100 Mg Tablet 100 Mg PO DAILY Folic Acid 1 Mg Tablet 1 Tab PO DAILY Oxycodone Hcl 5 Mg Capsule 1 Cap PO QID Potassium Chloride 10 Meq Tablet.er 10 Meq PO DAILY Lasix (Furosemide) 20 Mg Tablet 1 Tab PO DAILY Tramadol Hcl 50 Mg Tablet 1 Tab PO BID Synthroid (Levothyroxine Sodium) 100 Mcg Tablet 1 Tab PO DAILY Melatonin 5 Mg Tablet 5 Mg PO Baclofen 10 Mg Tablet 1 Tab PO TID Multi Vitamin Daily (Multivitamin) 1 Each Tablet 1 Each PO Aspirin 81 Mg Tab.chew 1 Tab PO DAILY Loratadine 10 Mg Tablet 1 Tab PO DAILY Mirtazapine 30 Mg Tablet 1 Tab PO QHS Vitals/I & O Vital Sign - Last 24 Hours 10/01/19 10/01/19 10/01/19 10/01/19 09:00 09:27 09:27 09:30 Pulse 100 100 Resp 20 15 B/P (MAP) 134/79 (97) 96/57 (70) Pulse Ox 94 99 99 95 O2 Delivery Nasal Cannula Nasal Cannula Nasal Cannula Nasal Cannula O2 Flow Rate 3.0 3.0 3.0 3.0 10/01/19 10/01/19 10/01/19 10/01/19 10:00 11:00 11:51 12:00 Temp 98.5 98.5 Pulse 100 102 100 Resp 20 4 17 B/P (MAP) 107/75 (86) 114/74 (87) 103/81 (88) Pulse Ox 99 99 98 95 O2 Delivery Nasal Cannula Nasal Cannula Nasal Cannula Nasal Cannula O2 Flow Rate 3.0 3.0 2.0 3.0 10/01/19 10/01/19 10/01/19 10/01/19 12:00 13:00 14:00 15:00 Pulse 102 100 101 Resp 21 18 21 B/P (MAP) 94/70 (78) 85/65 (72) 107/78 (88) Pulse Ox 99 99 99 O2 Delivery Nasal Cannula Nasal Cannula Nasal Cannula Nasal Cannula O2 Flow Rate 3.0 3.0 3.0 3.0 11/2610/01/19 10/01/19 10/01/19 15:35 16:00 16:00 17:00 Temp 98.8 98.8 Pulse 100 100 Resp 18 18 B/P (MAP) 109/71 (84) 101/71 (81) Pulse Ox 97 100 95 O2 Delivery Nasal Cannula Nasal Cannula Nasal Cannula Nasal Cannula O2 Flow Rate 2.0 3.0 3.0 3.0 10/01/19 10/01/19 10/01/19 10/01/19 18:00 19:00 19:27 20:00 Temp 98.7 98.7 Pulse 98 101 106 Resp 21 23 18 B/P (MAP) 100/75 (83) 101/70 (80) 92/71 (78) Pulse Ox 99 94 93 94 O2 Delivery Nasal Cannula Nasal Cannula Nasal Cannula Nasal Cannula O2 Flow Rate 3.0 3.0 2.0 3.0 10/01/19 10/01/19 10/01/19 10/01/19 20:00 20:40 21:00 21:40 Pulse 103 Resp 20 B/P (MAP) 92/68 (76) Pulse Ox 93 O2 Delivery Nasal Cannula Nasal Cannula Nasal Cannula Nasal Cannula O2 Flow Rate 3.0 3.0 3.0 3.0 10/01/19 10/01/19 10/01/19 10/02/19 22:00 23:00 23:50 00:00 Temp 98.7 98.7 Pulse 104 99 101 Resp 18 18 20 B/P (MAP) 111/77 (88) 96/66 (76) 92/58 (69) Pulse Ox 95 96 97 O2 Delivery Nasal Cannula Nasal Cannula Nasal Cannula Nasal Cannula O2 Flow Rate 3.0 3.0 3.0 3.0 10/02/19 10/02/19 10/02/19 10/02/19 01:00 02:00 03:00 03:30 Pulse 96 95 95 Resp 12 12 14 B/P (MAP) 91/64 (73) 95/70 (78) 99/73 (82) Pulse Ox 97 95 95 O2 Delivery Nasal Cannula Nasal Cannula Nasal Cannula Nasal Cannula O2 Flow Rate 2.0 2.0 2.0 2.0 10/02/19 10/02/19 10/02/19 10/02/19 04:00 05:00 06:00 07:00 Temp 98.6 98.6 Pulse 96 99 101 100 Resp 20 12 18 22 B/P (MAP) 112/71 (85) 123/85 (98) 118/86 (97) 114/80 (91) Pulse Ox 96 94 96 97 O2 Delivery Nasal Cannula Nasal Cannula Nasal Cannula Nasal Cannula O2 Flow Rate 2.0 2.0 2.0 2.0 10/02/19 10/02/19 10/02/19 10/02/19 07:56 07:56 08:00 08:48 Temp 97.6 97.6 Pulse 103 Resp 18 18 20 B/P (MAP) 127/96 (106) Pulse Ox 96 97 98 95 O2 Delivery Nasal Cannula Nasal Cannula Nasal Cannula O2 Flow Rate 2.0 2.0 2.0 Intake and Output 10/01/19 10/01/19 10/02/19 15:00 23:00 07:00 Intake Total 500 ml 764 ml 547 ml Output Total 1290 ml 620 ml 490 ml Balance -790 ml 144 ml 57 ml NARAYAN LINDSAY MD Oct 02, 2019 08:57
[2019-10-02] MEDS ORDERED: AMOXICILLIN/K CLAV 875/125MG TABLET. PO SCH (09:00)
[2019-10-02] MEDS ORDERED: DIAZ2TAB3 PO (09:58)
[2019-10-02] MEDS ORDERED: AMOX1TAB11 PO (09:58)
[2019-10-02] MEDS ORDERED: POLY17PO28 PO (09:58)
[2019-10-02] MEDS ORDERED: OSEL75CA PO (09:58)
[2019-10-02] MEDS ORDERED: OXYC5CAP PO (09:58)
[2019-10-02] MEDS ORDERED: PSYL3.4P PO (09:58)
[2019-10-02] MEDS ORDERED: IPRA3AMP29 NEB (09:58)
[2019-10-02] MEDS ORDERED: METF500T PO (09:58)
[2019-10-02] MEDS ORDERED: TRAM50TA PO (09:58)
--- NOTE | 2019-10-02 10:00 | SNU/HH DC ---
DISCHARGE ORDERS DISCHARGE INFORMATION: DISCHARGE DATE: Oct 02, 2019 FINAL DIAGNOSIS Problems Medical Problems: (1) Fecal impaction Status: Acute (2) Influenza B Status: Acute (3) Sepsis Status: Acute CONDITION ON DISCHARGE: Stable CODE STATUS: Code Status: Full POST DISCHARGE ORDERS: ACTIVITY ORDERS: Activity as tolerated DIET AFTER DISCHARGE: ADA CHECKS AFTER DISCHARGE: CHECKS AFTER DISCHARGE: Check blood sugar, ac/hs FOLLOW-UP: LAB ORDERS FOR FOLLOW-UP: [facility] on 10/07/19 TREATMENT/EQUIPMENT ORDERS: RESPIRATORY EQUIPMENT NEEDED: Oxygen (1), Nebulizer DISCHARGE MEDICATIONS: Home Meds Active Scripts Ipratropium/Albuterol Sulfate (DUONEB 0.5-3(2.5) MG/3 ML) 3 Ml Ampul.neb, 3 ML NEB RTQID for Bronchitis for 10 Days, #40 EACH Prov:NARAYAN LINDSAY MD 10/02/19 Metformin Hcl (GLUCOPHAGE) 500 Mg Tablet, 500 MG PO BIDWMEALS for DM2 for 30 Days, #60 TAB Prov:NARAYAN LINDSAY MD 10/02/19 Psyllium Husk/Aspartame (METAMUCIL FIBER SINGLES PACKET) 3.4 Gm Powd.pack, 1 PKT PO DAILY for Constipation for 30 Days, #30 PKT Prov:NARAYAN LINDSAY MD 10/02/19 Polyethylene Glycol 3350 (POLYETHYLENE GLYCOL 3350) 17 Gm Powd.pack, 17 GM PO PRN DAILY PRN for CONSTIPATION for 30 Days, #30 PKT Prov:NARAYAN LINDSAY MD 10/02/19 Oseltamivir Phosphate (TAMIFLU) 75 Mg Capsule, 75 MG PO BID for Flu B for 6 Days, #12 CAP Prov:NARAYAN LINDSAY MD 10/02/19 Amoxicillin/Potassium Clav (AMOX TR-K CLV 875-125 MG TAB) 1 Each Tablet, 1 TAB PO BID for Cellulitis for 6 Days, #12 TAB Prov:NARAYAN LINDSAY MD 10/02/19 Diazepam (DIAZEPAM) 2 Mg Tablet, 2 MG PO PRN BID PRN for anxiety/muscle spasm for 6 Days, #12 TAB Prov:NARAYAN LINDSAY MD 10/02/19 Oxycodone Hcl (OXYCODONE HCL) 5 Mg Capsule, 1 CAP PO PRN QID for pain for 6 Days, #20 CAP Prov:NARAYAN LINDSAY MD 10/02/19 Tramadol Hcl (TRAMADOL HCL) 50 Mg Tablet, 1 TAB PO BID for Pain for 6 Days, #12 TAB Prov:NARAYAN LINDSAY MD 10/02/19 Reported Medications Thiamine Hcl (THIAMINE HCL) 100 Mg Tablet, 100 MG PO DAILY 09/24/16 Folic Acid (FOLIC ACID) 1 Mg Tablet, 1 TAB PO DAILY, #90 TAB 1 Refill 09/24/16 Potassium Chloride (POTASSIUM CHLORIDE) 10 Meq Tablet.er, 10 MEQ PO DAILY, TAB 09/24/16 Furosemide (LASIX) 20 Mg Tablet, 1 TAB PO DAILY, #90 TAB 1 Refill 09/24/16 Levothyroxine Sodium (SYNTHROID) 100 Mcg Tablet, 1 TAB PO DAILY, #30 TAB 5 Refills 09/24/16 Melatonin (MELATONIN) 5 Mg Tablet, 5 MG PO 09/24/16 Baclofen (BACLOFEN) 10 Mg Tablet, 1 TAB PO TID, #90 TAB 2 Refills 09/24/16 Multivitamin (MULTI VITAMIN DAILY) 1 Each Tablet, 1 EACH PO 09/24/16 Aspirin (ASPIRIN) 81 Mg Tab.chew, 1 TAB PO DAILY, #30 TAB 3 Refills 09/24/16 Loratadine (LORATADINE) 10 Mg Tablet, 1 TAB PO DAILY, #30 TAB 5 Refills 09/24/16 Mirtazapine (MIRTAZAPINE) 30 Mg Tablet, 1 TAB PO QHS, #30 TAB 1 Refill 09/24/16 NARAYAN LINDSAY MD Oct 02, 2019 10:00
--- NOTE | 2019-10-02 10:04 | PDOC3 ---
Discharge Summary Visit Information Date of Admission: Sep 29, 2019 Date of Discharge: Oct 02, 2019 Admitting Diagnosis: Flu B Final Diagnosis Problems Medical Problems: (1) Fecal impaction Status: Acute (2) Influenza B Status: Acute (3) Sepsis Status: Acute Brief Hospital Course Allergies Allergies Coded Allergies Type Severity Reaction Last Updated Verified propylthiouracil Allergy Intermediate Nausea and Vomiting 03/09/16 Yes Vital Signs Vital Signs Date Time Temp Pulse Resp B/P (MAP) Pulse Ox O2 Delivery O2 Flow Rate FiO2 10/02/19 09:00 107 18 138/91 (107) 94 Room Air 10/02/19 08:48 2.0 10/02/19 08:00 97.6 97.6 Lab Results Laboratory Tests Test 09/30/19 12:29 09/30/19 17:26 09/30/19 21:01 10/01/19 07:25 Glucose (Fingerstick) 156 mg/dL (70-99) 156 mg/dL (70-99) 166 mg/dL (70-99) White Blood Count 8.6 x10^3/uL (4.0-11.0) Red Blood Count 4.14 x10^6/uL (3.50-5.40) Hemoglobin 11.7 g/dL (12.0-15.5) Hematocrit 35.9 % (36.0-47.0) Mean Corpuscular Volume 87 fL (79-100) Mean Corpuscular Hemoglobin 28 pg (25-35) Mean Corpuscular Hemoglobin Concent 32 g/dL (31-37) Red Cell Distribution Width 14.9 % (11.5-14.5) Platelet Count 243 x10^3/uL (140-400) Neutrophils (%) (Auto) 62 % (31-73) Lymphocytes (%) (Auto) 25 % (24-48) Monocytes (%) (Auto) 9 % (0-9) Eosinophils (%) (Auto) 3 % (0-3) Basophils (%) (Auto) 1 % (0-3) Neutrophils # (Auto) 5.3 x10^3/uL (1.8-7.7) Lymphocytes # (Auto) 2.1 x10^3/uL (1.0-4.8) Monocytes # (Auto) 0.8 x10^3/uL (0.0-1.1) Eosinophils # (Auto) 0.3 x10^3/uL (0.0-0.7) Basophils # (Auto) 0.1 x10^3/uL (0.0-0.2) Sodium Level 142 mmol/L (136-145) Potassium Level 3.3 mmol/L (3.5-5.1) Chloride Level 107 mmol/L (98-107) Carbon Dioxide Level 27 mmol/L (21-32) Anion Gap 8 (6-14) Blood Urea Nitrogen 5 mg/dL (7-20) Creatinine 0.8 mg/dL (0.6-1.0) Estimated GFR (Cockcroft-Gault) 86.1 Glucose Level 140 mg/dL (70-99) Calcium Level 8.2 mg/dL (8.5-10.1) Magnesium Level 1.8 mg/dL (1.8-2.4) Test 10/01/19 17:06 10/01/19 20:31 10/02/19 05:40 Sodium Level 140 mmol/L (136-145) 140 mmol/L (136-145) Potassium Level 3.7 mmol/L (3.5-5.1) 3.5 mmol/L (3.5-5.1) Chloride Level 106 mmol/L (98-107) 104 mmol/L (98-107) Carbon Dioxide Level 28 mmol/L (21-32) 27 mmol/L (21-32) Anion Gap 6 (6-14) 9 (6-14) Blood Urea Nitrogen 4 mg/dL (7-20) 4 mg/dL (7-20) Creatinine 0.7 mg/dL (0.6-1.0) 0.7 mg/dL (0.6-1.0) Estimated GFR (Cockcroft-Gault) 100.4 100.4 Glucose Level 99 mg/dL (70-99) 111 mg/dL (70-99) Calcium Level 8.4 mg/dL (8.5-10.1) 8.7 mg/dL (8.5-10.1) Glucose (Fingerstick) 101 mg/dL (70-99) White Blood Count 8.1 x10^3/uL (4.0-11.0) Red Blood Count 4.03 x10^6/uL (3.50-5.40) Hemoglobin 11.4 g/dL (12.0-15.5) Hematocrit 35.2 % (36.0-47.0) Mean Corpuscular Volume 87 fL (79-100) Mean Corpuscular Hemoglobin 28 pg (25-35) Mean Corpuscular Hemoglobin Concent 33 g/dL (31-37) Red Cell Distribution Width 14.9 % (11.5-14.5) Platelet Count 243 x10^3/uL (140-400) Neutrophils (%) (Auto) 72 % (31-73) Lymphocytes (%) (Auto) 19 % (24-48) Monocytes (%) (Auto) 7 % (0-9) Eosinophils (%) (Auto) 2 % (0-3) Basophils (%) (Auto) 1 % (0-3) Neutrophils # (Auto) 5.8 x10^3/uL (1.8-7.7) Lymphocytes # (Auto) 1.5 x10^3/uL (1.0-4.8) Monocytes # (Auto) 0.5 x10^3/uL (0.0-1.1) Eosinophils # (Auto) 0.2 x10^3/uL (0.0-0.7) Basophils # (Auto) 0.1 x10^3/uL (0.0-0.2) BUN/Creatinine Ratio 6 (6-20) Total Bilirubin 0.5 mg/dL (0.2-1.0) Aspartate Amino Transf (AST/SGOT) 18 U/L (15-37) Alanine Aminotransferase (ALT/SGPT) 17 U/L (14-59) Alkaline Phosphatase 74 U/L (46-116) Total Protein 7.4 g/dL (6.4-8.2) Albumin 2.5 g/dL (3.4-5.0) Albumin/Globulin Ratio 0.5 (1.0-1.7) Laboratory Tests Test 10/01/19 17:06 10/01/19 20:31 10/02/19 05:40 Sodium Level 140 mmol/L (136-145) 140 mmol/L (136-145) Potassium Level 3.7 mmol/L (3.5-5.1) 3.5 mmol/L (3.5-5.1) Chloride Level 106 mmol/L (98-107) 104 mmol/L (98-107) Carbon Dioxide Level 28 mmol/L (21-32) 27 mmol/L (21-32) Anion Gap 6 (6-14) 9 (6-14) Blood Urea Nitrogen 4 mg/dL (7-20) 4 mg/dL (7-20) Creatinine 0.7 mg/dL (0.6-1.0) 0.7 mg/dL (0.6-1.0) Estimated GFR (Cockcroft-Gault) 100.4 100.4 Glucose Level 99 mg/dL (70-99) 111 mg/dL (70-99) Calcium Level 8.4 mg/dL (8.5-10.1) 8.7 mg/dL (8.5-10.1) Glucose (Fingerstick) 101 mg/dL (70-99) White Blood Count 8.1 x10^3/uL (4.0-11.0) Red Blood Count 4.03 x10^6/uL (3.50-5.40) Hemoglobin 11.4 g/dL (12.0-15.5) Hematocrit 35.2 % (36.0-47.0) Mean Corpuscular Volume 87 fL (79-100) Mean Corpuscular Hemoglobin 28 pg (25-35) Mean Corpuscular Hemoglobin Concent 33 g/dL (31-37) Red Cell Distribution Width 14.9 % (11.5-14.5) Platelet Count 243 x10^3/uL (140-400) Neutrophils (%) (Auto) 72 % (31-73) Lymphocytes (%) (Auto) 19 % (24-48) Monocytes (%) (Auto) 7 % (0-9) Eosinophils (%) (Auto) 2 % (0-3) Basophils (%) (Auto) 1 % (0-3) Neutrophils # (Auto) 5.8 x10^3/uL (1.8-7.7) Lymphocytes # (Auto) 1.5 x10^3/uL (1.0-4.8) Monocytes # (Auto) 0.5 x10^3/uL (0.0-1.1) Eosinophils # (Auto) 0.2 x10^3/uL (0.0-0.7) Basophils # (Auto) 0.1 x10^3/uL (0.0-0.2) BUN/Creatinine Ratio 6 (6-20) Total Bilirubin 0.5 mg/dL (0.2-1.0) Aspartate Amino Transf (AST/SGOT) 18 U/L (15-37) Alanine Aminotransferase (ALT/SGPT) 17 U/L (14-59) Alkaline Phosphatase 74 U/L (46-116) Total Protein 7.4 g/dL (6.4-8.2) Albumin 2.5 g/dL (3.4-5.0) Albumin/Globulin Ratio 0.5 (1.0-1.7) Brief Hospital Course Ms Barrera is a 69 AA female, long time [place] resident,wheel chair 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 Positive flu B, cellulitis, Some haziness CXR. Admitted to ICU on levophed. Seen by ID in consultation. 10/01/19: K 3.3 this morning. She is breathing somewhat better. Still on levophed. Had a BM. Orta still in place. She is requesting to work with PT. Denies CP. Feeling less short of breath. Off levophed today, feeling much better. On oral antibiotics Problem list Influenza B Septic shock Constipation. History of cerebrovascular accident. Left leg cellulitis with sepsis Hypokalemia Hypoxic respiratory failure BC + 1/3 G + cocci, likely contaminant Plan: Some mobility may help. Unclear what her baseline BP is, but she notes she is normally hypertensive. Ready for d/c on augmentin 6 days and tamiflu 6 days, needs BMP in 5 days Greater than 30 minutes spent on discharge Discharge Information Condition at Discharge: Improved Follow Up: Weeks Disposition/Orders: D/C to Another Facility Scheduled Amoxicillin/Potassium Clav (Amox Tr-K Clv 875-125 Mg Tab) 1 Each Tablet, 1 TAB PO BID for Cellulitis for 6 Days, #12 Prescribed by: NARAYAN LINDSAY MD on 10/02/19 0958 Aspirin (Aspirin) 81 Mg Tab.chew, 1 TAB PO DAILY, #30 Ref 3 (Reported) Entered as Reported by: KENDRA SHOEMAKER on 09/24/16 1027 Last Action: Continued on 09/29/19809 by CAREN AN Baclofen (Baclofen) 10 Mg Tablet, 1 TAB PO TID, #90 Ref 2 (Reported) Entered as Reported by: KENDRA SHOEAMKER on 09/24/161026 Last Action: Converted on 09/29/19810 by CAREN AN Folic Acid (Folic Acid) 1 Mg Tablet, 1 TAB PO DAILY, #90 Ref 1 (Reported) Entered as Reported by: KENDRA SHOEMAKER on 09/24/161026 Last Action: Continued on 09/29/19810 by CAREN AN Furosemide (Lasix) 20 Mg Tablet, 1 TAB PO DAILY, #90 Ref 1 (Reported) Entered as Reported by: KENDRA SHOEMAKER on 09/24/161026 Last Action: HELD on 09/29/19810 by CAREN AN Ipratropium/Albuterol Sulfate (Duoneb 0.5-3(2.5) Mg/3 Ml) 3 Ml Ampul.neb, 3 ML NEB RTQID for Bronchitis for 10 Days, #40 Prescribed by: NARAYAN LINDSAY MD on 10/02/19 0958 Levothyroxine Sodium (Synthroid) 100 Mcg Tablet, 1 TAB PO DAILY, #30 Ref 5 (Reported) Entered as Reported by: KENDRA SHOEMAKER on 09/24/161026 Last Action: Continued on 09/29/19810 by CAREN AN Loratadine (Loratadine) 10 Mg Tablet, 1 TAB PO DAILY, #30 Ref 5 (Reported) Entered as Reported by: KENDRA SHOEMAKER on 09/24/161026 Last Action: Converted on 09/29/19809 by CAREN AN Metformin Hcl (Glucophage) 500 Mg Tablet, 500 MG PO BIDWMEALS for DM2 for 30 Days, #60 Prescribed by: NARAYAN LINDSAY MD on 10/02/19 0958 Mirtazapine (Mirtazapine) 30 Mg Tablet, 1 TAB PO QHS, #30 Ref 1 (Reported) Entered as Reported by: KENDRA SHOEMAKER on 09/24/16 102 Last Action: Converted on 09/29/19809 by CAREN AN Oseltamivir Phosphate (Tamiflu) 75 Mg Capsule, 75 MG PO BID for Flu B for 6 Days, #12 Prescribed by: NARAYAN LINDSAY MD on 10/02/19 0958 Oxycodone Hcl (Oxycodone Hcl) 5 Mg Capsule, 1 CAP PO PRN QID for pain for 6 Days, #20 Prescribed by: NARAYAN LINDSAY MD on 10/02/19 0958 Potassium Chloride (Potassium Chloride) 10 Meq Tablet.er, 10 MEQ PO DAILY, (Reported) Entered as Reported by: KENDRA SHOEMAKER on 09/24/161026 Last Action: Continued on 09/29/19810 by CAREN AN Psyllium Husk/Aspartame (Metamucil Fiber Singles Packet) 3.4 Gm Powd.pack, 1 PKT PO DAILY for Constipation for 30 Days, #30 Prescribed by: NARAYAN LINDSAY MD on 10/02/19 0958 Thiamine Hcl (Thiamine Hcl) 100 Mg Tablet, 100 MG PO DAILY, (Reported) Entered as Reported by: KENDRA SHOEMAKER on 09/24/16 102 Last Action: Converted on 09/29/19810 by CAREN AN Tramadol Hcl (Tramadol Hcl) 50 Mg Tablet, 1 TAB PO BID for Pain for 6 Days, #12 Prescribed by: NARAYAN LINDSAY MD on 10/02/19 09 Scheduled PRN Diazepam (Diazepam) 2 Mg Tablet, 2 MG PO PRN BID PRN for anxiety/muscle spasm for 6 Days, #12 Prescribed by: NARAYAN LINDSAY MD on 10/02/19 0958 Polyethylene Glycol 3350 (Polyethylene Glycol 3350) 17 Gm Powd.pack, 17 GM PO PRN DAILY PRN for CONSTIPATION for 30 Days, #30 Prescribed by: NARAYAN LINDSAY MD on 10/02/19 0958 Miscellaneous Medications Melatonin (Melatonin) 5 Mg Tablet, 5 MG PO, (Reported) Entered as Reported by: KENDRA SHOEMAKER on 09/24/161026 Last Action: Converted on 09/29/19810 by CAREN AN Multivitamin (Multi Vitamin Daily) 1 Each Tablet, 1 EACH PO, (Reported) Entered as Reported by: KENDRA SHOEMAKER on 09/24/16 1027 Last Action: Converted on 09/29/19809 by NARAYAN JARQUIN S MD Oct 02, 2019 10:04
--- NOTE | 2019-10-02 10:17 | NUR ---
SS following up with discharge planning. Discharge orders received for return to LTC at [facility], ; fax [phone]. SS phoned and faxed discharge orders to [facility]. Pt will discharge today and return to [facility] at 1100 via stretcher transport. [facility] to provide transportation. Pt, pt's RN, and pt's family notified.
--- NOTE | 2019-10-02 10:26 | NUR ---
Orta catheter removed after 10 cc balloon decompressed
--- NOTE | 2019-10-02 11:10 | NUR ---
Patient discharged to [facility] at 1004 and report called to Steve at the assisted at 1110.
== END 2019-10-02 11:04 | DRG 871 ==
LOC: ER 00:15 → 1 WEST ICU 03:51
PROVIDERS: ADMIT Internal Medicine; ATTEND Internal Medicine
PROC: 02HV33Z Insertion of Infusion Device into Superior Vena Cava, Percutaneous Approach (ICD-10-PCS; principal; 2019-09-29)
DX: A41.9 Sepsis, unspecified organism (principal); R53.2 Functional quadriplegia; J96.21 Acute and chronic respiratory failure with hypoxia; R65.21 Severe sepsis with septic shock; N17.0 Acute kidney failure with tubular necrosis; I69.351 Hemiplegia and hemiparesis following cerebral infarction affecting right dominant side; L03.116 Cellulitis of left lower limb; E44.0 Moderate protein-calorie malnutrition; Z88.8 Allergy status to other drugs, medicaments and biological substances; D63.8 Anemia in other chronic diseases classified elsewhere; E03.9 Hypothyroidism, unspecified; E87.6 Hypokalemia; I10 Essential (primary) hypertension; J10.1 Influenza due to other identified influenza virus with other respiratory manifestations; J44.9 Chronic obstructive pulmonary disease, unspecified; K56.41 Fecal impaction; Z99.3 Dependence on wheelchair; Z68.32 Body mass index [BMI] 32.0-32.9, adult
CPT/HCPCS: 36415; 36556; 71045; 74176; 80048; 80053; 81001; 82962; 83036; 83605; 83735; 83880; 84145; 85007; 85025; 87040; 87077; 87086; 87205; 87804; 94640; 94760; 96365; 96366; 96368; 96375; J1815; J1940; J2405; J2543; J3370; J3475; J3480; J7030; J7040; J7050; J7620; Q9967; 99291-25; G0378

== ENCOUNTER → 2019-10-21 | Outpatient (CLI) | payer OTHER ==
[2019-10-02 10:00] VITALS: BP 135/89
[~2019-10-21] MED LIST changes: +AMOX1TAB11 PO; +IOHEXOL 300 MG/ML 100ML VIAL. IV ONE; +IPRA3AMP29 NEB; +METF500T PO; +OSEL75CA PO; +POLY17PO28 PO; +PSYL3.4P PO
--- NOTE | 2019-10-21 12:14 | RAD ---
CT CHEST WO CONTRAST Indication: Left lower chest pain for about one month Technique: Noncontrast CT imaging was performed of the chest, multiplanar reconstruction images submitted. One or more of the following individualized dose reduction techniques were utilized for this examination: 1. Automated exposure control 2. Adjustment of the mA and/or kV according to patient size 3. Use of iterative reconstruction technique. Comparison: None other than September 29, 2019 CT exam pelvis exam, no previous dedicated chest CT available Findings: There is some motion degradation. Poorly evaluated due to motion, there is appearance of slightly displaced mid sternal fracture. As best seen on image 35 series 2, there is a persistent focus of noncalcified right lower lobe parenchymal density extending the pleural surface about 2 cm transverse by 1.6 cm AP by about 0.9 cm cc. Not fully included previously, visualized portion is similar in appearance. There is no pleural or pericardial fluid or pneumothorax.There are some calcified subcarinal nodes and left hilar nodes. Right subcarinal node about 1 cm is similar. There are some calcified left lower lobe pulmonary nodules. There is mild centrilobular emphysema. Thoracic vertebral body stature is overall maintained. No displaced left rib fracture is identified. There is again 1.9 cm focus of calcification near the hiatus located posterior to the heart and medial to the vena cava. IMPRESSION: 1. Poorly evaluated due to motion, there is appearance of slightly displaced mid sternal fracture. 2. There is again noncalcified focus of parenchymal density of the right lower lobe not fully included on previous CT abdomen pelvis exam. Short-term follow-up in 3 months, PET/CT, or consideration of tissue sampling recommended as per revised Fleischner guidelines. There is centrilobular emphysema. 3. There is evidence of old granulomatous disease. Electronically signed by: Hector Dodson MD (10/21/2019 12:11 PM) [id number]
== END | disposition home or self-care (01) ==
LOC: CT 08:51
PROVIDERS: ATTEND Family Medicine
DX: J43.2 Centrilobular emphysema (principal)
CPT/HCPCS: 71250